=== PATIENT | female | born 1950 | race Caucasian/White ===

== ENCOUNTER 2020-10-18 19:16 | Inpatient (IN) | payer MEDICARE, MEDICAID, SELFPAY ==
--- NOTE | ~2020-10-18 | CT_ITS ---
EXAMINATION: CT HEAD WITHOUT CONTRAST CLINICAL INFORMATION: Change in mental status. Rule out stroke/bleed. COMPARISON: None. TECHNIQUE: Contiguous axial imaging was performed from the skull base to vertex without intravenous contrast. This CT examination was performed using dose optimization techniques as appropriate, variously including the following: * Automated exposure control * Adjustment of mA and/or kV according to patient size (this includes techniques or standardized protocols for targeted exams where dose is matched to indication/reason for exam; i.e. extremities or head) Use of iterative reconstruction technique DLP: 767 mGy-cm. FINDINGS: There is no evidence of acute intracranial hemorrhage or territorial infarction. No abnormal mass effect or midline shift is seen. Townsend to white matter differentiation is well preserved. No extra-axial fluid collections are identified. No hydrocephalus. Proportional prominence of the ventricles and sulcal spaces is consistent with mild volume loss. Patchy periventricular and deep white matter hypoattenuation is consistent with mild small vessel ischemic changes. The osseous structures and soft tissues are normal. The mastoid air cells and visualized portions of the paranasal sinuses are well aerated. CT/CT head/brain wo con IMPRESSION: No acute intracranial pathology. Chronic volume loss with small vessel ischemic change.
--- NOTE | ~2020-10-18 | CT_ITS ---
EXAMINATION: CT HEAD WITHOUT CONTRAST CLINICAL INFORMATION: New onset hearing loss. COMPARISON: Earlier same day TECHNIQUE: Contiguous axial imaging was performed from the skull base to vertex without intravenous administration of contrast. This CT examination was performed using dose optimization techniques as appropriate, variously including the following: *Automated exposure control *Adjustment of mA and/or kV according to patient size (this includes techniques or standardized protocols for targeted exams where dose is matched to indication/reason for exam; i.e. extremities or head) *Use of iterative reconstruction technique DLP: 709 mGy-cm FINDINGS: There is no evidence of acute intracranial hemorrhage or territorial infarction. No abnormal mass effect or midline shift is seen. Townsend to white matter differentiation is well preserved. No extra-axial fluid collections are identified. The ventricles are normal in size. Patchy and confluent subcortical and periventricular white matter low attenuation changes lead to small vessel ischemic disease. Cavernous carotid calcifications. The osseous structures and soft tissues are normal. The mastoid air cells and visualized portions of the paranasal sinuses are well aerated. CT/CT head/brain wo con IMPRESSION: No acute intracranial pathology. Extensive chronic white matter small vessel ischemic changes.
--- NOTE | ~2020-10-18 | XR_ITS ---
EXAMINATION: XR CHEST CLINICAL INFORMATION: Hypoxia COMPARISON: None TECHNIQUE: Frontal view of the chest was obtained. FINDINGS: Cardiac leads overlie the chest. The lungs are well expanded. Prominent interstitial markings are noted. No pleural effusion or pneumothorax. No dense consolidation. The cardiomediastinal silhouette is normal in size with a calcified aorta. XR/XR chest 1V IMPRESSION: Prominent interstitial markings could be associated with mild edema versus a small airways process. No dense consolidation.
--- NOTE | 2020-10-18 19:31 | ECG_ITS ---
Test Reason : SOB Blood Pressure : / mmHG Vent. Rate : 092 BPM Atrial Rate : 092 BPM P-R Int : 148 ms QRS Dur : 076 ms QT Int : 398 ms P-R-T Axes : 038 004 -67 degrees QTc Int : 492 ms Normal sinus rhythm Nonspecific ST and T wave abnormality Prolonged QT Abnormal ECG No previous ECGs available Referred By: Generic ED Physician Electronically Signed By:CHI HASSAN
[2020-10-18 19:35] VITALS: BP 80/58; PULSE 92; RESP 24; TEMP 36.9; O2SAT 93; BMI 35.4
[2020-10-18 19:44] LABS: MANUAL DIFF FLAG NO
[2020-10-18 19:53] LABS: Basophils Percent Auto 0.1 % (0-2); Eosinophils Percent Auto 0.1 % (0-4); Hematocrit 37.9 % (37-47); Hemoglobin 12.4 g/dl (12.0-16.0); Imm Gran Abs Auto 0.25 X10*3/uL (0.00-0.03); Imm Gran Pct Auto 1.8 % (0.0-0.4); Lymphocytes Absolute Auto 0.9 X10*3/uL (1.2-4.9); Lymphocytes Percent Auto 6.4 % (20-40); Mean Corpuscular HGB Conc 32.7 g/dl (31.0-35.0); Mean Corpuscular Hemoglobin 30.2 pg (27.0-33.0); Mean Corpuscular Volume 92.2 fL (80-98); Mean Platelet Volume 9.8 fL (9.4-12.3); Monocytes Absolute Auto 0.7 X10*3/uL (0.1-1.2); Monocytes Percent Auto 5.1 % (2-11); NRBC Pct Auto 0.4 /100WBC (0.0-0.2); Neutrophils Absolute Auto 12.1 X10*3/uL (2.0-8.3); Neutrophils Percent Auto 86.5 % (45-73); Platelet Count 234 X10*3/uL (160-400); Red Blood Count 4.11 X10*6/uL (4.20-5.50); Red Cell Distribution Width 16.3 % (11.0-16.0)
--- NOTE | 2020-10-18 19:58 | ED_ITS ---
HPI - General Adult General Chief complaint: Dyspnea Stated complaint: hypoxia copd Time Seen by Provider: 10/18/20 19:43 Source: EMS and other (ED nurse) Mode of arrival: EMS Limitations: other (Patient is very hard of hearing and cannot get information from her) History of Present Illness HPI narrative: 70-year-old female who is brought into emergency department by ambulance for evaluation of altered mental status. The patient is very hard of hearing and I cannot obtain any information from her. According to the ED nurse, the patient lives at [facility]. The patient has a history of COPD with hypoxia and respiratory failure. The patient wears continuous oxygen at 5 L per nasal cannula. The staff at the [facility] last saw her around 3:00 p.m. and she was wearing her oxygen. When they checked in on her she was confused and obtunded. When the paramedics arrived they found that the patient's O2 saturation machine was off and she was not wearing her nasal cannula. The paramedics placed her on oxygen and the patient became more awake and alert and by the time she arrived in the emergency department she was no longer up tended. Paramedics did note the patient has peripheral edema. Related Data Home Medications Medication Instructions Recorded Confirmed aspirin 81 mg chewable tablet 1 tab PO DAILY 10/19/20 10/19/20 azithromycin 250 mg tablet 1 tab PO 3XW 10/19/20 10/19/20 cholecalciferol (vitamin D3) 50 1 cap PO DAILY 10/19/20 10/19/20 mcg (2,000 unit) capsule (Vitamin D3) fluoxetine 20 mg capsule 1 cap PO DAILY 10/19/20 10/19/20 furosemide 40 mg tablet 1 tab PO DAILY 10/19/20 10/19/20 levothyroxine 75 mcg tablet 1 tab PO DAILY 10/19/20 10/19/20 lisinopril 2.5 mg tablet 1 tab PO DAILY 10/19/20 10/19/20 loratadine 10 mg tablet 1 tab PO DAILY 10/19/20 10/19/20 lorazepam 0.5 mg tablet 1 tab PO TID PRN 10/19/20 10/19/20 melatonin 3 mg tablet 1 tab PO BEDTIME 10/19/20 10/19/20 montelukast 10 mg tablet 1 tab PO DAILY 10/19/20 10/19/20 multivitamin with minerals-ferrous 1 tab PO BEDTIME 10/19/20 10/19/20 sulfate 4.5 mg iron tablet (One Daily Multivitamins with Minerals) prednisone 10 mg tablet 1 tab PO DAILY 10/19/20 10/19/20 pregabalin 75 mg capsule 1 cap PO BID 10/19/20 10/19/20 rosuvastatin 20 mg tablet 1 tab PO BEDTIME 10/19/20 10/19/20 trazodone 100 mg tablet 1 tab PO BEDTIME 10/19/20 10/19/20 Allergies Allergy/AdvReac Type Severity Reaction Status Date / Time Seasonal IC Allergy Unknown Uncoded 02/16/19 00:00 seasonal IC Allergy Unknown Uncoded 12/19/18 00:00 [facility] Past Medical History [facility] Narrative: Past medical history: COPD with hypoxia and respiratory failure in the past. Hypothyroidism, depression, atrial fibrillation. Social history: The patient lives at the [facility]. She does not smoke ci garettes, drink alcohol or use drugs. Social History Social History Advance Directives: No Physical Exam Vital Signs: Vital Signs: Last Vital Signs Temp 98.7 F 10/18/20 21:05 Pulse 81 10/19/20 01:05 Resp 13 10/19/20 01:05 BP 119/72 10/19/20 01:05 Pulse Ox 96 10/19/20 01:05 Oxygen Flow Rate 5 10/18/20 19:35 Body Mass Index 35.4 Course Course Course Narrative: 70-year-old female with history of COPD who is oxygen dependent and receives 5 L of oxygen via nasal cannula presented to emergency department for evaluation of altered mental status secondary to being off oxygen. According to paramedics she was initially attended and when they put her back on oxygen she return to her baseline by the time they arrived in the emergency department emergency department. The patient is very hard of hearing and it is not possible to get information from her but she has no complaints and did not appear to be in any distress. The patient's laboratory evaluation [place] [address]. The patient's BUN was 19 with a creatinine of 1.85. Lactic acid was elevated at 3.3. Chest x-ray is concerning for bilateral interstitial infiltrates. The patient's 1st troponin was 1706. Twelve EKG did not reveal any evidence for ischemia or myocardial injury. The patient does have an elevation in her AST and ALT. At this time, concerned that the patient may have pneumonia. Also concerned the patient may have had ischemic myocardial injury secondary to hypoxia. I did discuss the elevated troponin and the unremarkable EKG with the covering cleat thrower, Dr. Jimenez. He recommended that the patient be treated with heparin and aspirin and the patient be admitted for further evaluation and management. I will also treat the patient with normal saline IV 30 milligrams/kilogram based on her ideal body weight since her BMI is 35.4. The patient will be treated with ceftriaxone 1 g IV and azithromycin 500 mg IV for possible pneumonia. 2231: I did discuss the patient's presentation with the covering hospitalist, Dr. Arreola and the patient will be admitted to the intermediate care unit for further management. Medical Decision Making Lab Data Result diagrams: 10/18/20 19:37 10/18/20 19:37 Labs: Lab Results 10/18/20 10/18/20 10/18/20 Range/Units 19:37 19:37 19:37 WBC 14.0 H (4.8-10.8) X10*3/uL RBC 4.11 L (4.20-5.50) X10*6/uL Hgb 12.4 (12.0-16.0) g/dl Hct 37.9 (37-47) % MCV 92.2 (80-98) fL MCH 30.2 (27.0-33.0) pg MCHC 32.7 (31.0-35.0) g/dl RDW 16.3 H (11.0-16.0) % Plt Count 234 (160-400) X10*3/uL MPV 9.8 (9.4-12.3) fL Immature Gran % (Auto) 1.8 H (0.0-0.4) % Neut % (Auto) 86.5 H (45-73) % Lymph % (Auto) 6.4 L (20-40) % Franklin % (Auto) 5.1 (2-11) % Eos % (Auto) 0.1 (0-4) % Baso % (Auto) 0.1 (0-2) % Lymph # (Auto) 0.9 L (1.2-4.9) X10*3/uL Franklin # (Auto) 0.7 (0.1-1.2) X10*3/uL Eos # (Auto) 0.0 (0.0-0.4) X10*3/uL Baso # (Auto) 0.0 (0.0-0.2) X10*3/uL Abs Immat Gran (auto) 0.25 H (0.00-0.03) X10*3/uL Absolute Neuts (auto) 12.1 H (2.0-8.3) X10*3/uL Absolute Nucleated RBC 0.050 H (0.0-0.012) X10*3/uL Nucleated RBC % (auto) 0.4 H (0.0-0.2) /100WBC PT (9.9-13.0) SEC INR (0.9-1.1) APTT (24.1-38.0) SEC O2 Saturation % ABG pH at Pt Temp (7.35-7.45) ABG pH (Temp Correct) (7.35-7.45) ABG pCO2 at Pt Temp (32-45) mmHg ABG pCO2 (Temp Corrct (32-45) mmHg ABG pO2 at Pt Temp (83-108) mmHg ABG pO2 (Temp Correct (83-108) ABG HCO3 (22-26) mmol/L ABG Base Excess (Actual) mmol/L Sodium 139 (135-145) mmol/L Potassium 3.5 (3.3-5.1) mmol/L Chloride 96 (96-108) mmol/L Carbon Dioxide 30 H (22-29) mmol/L Anion Gap 17 (12-20) BUN 19 H (9-16) mg/dL Creatinine 1.85 H (0.5-1.4) mg/dL Estim Creat Clear Calc 27.2 Estimated GFR 27 Random Glucose 170 H (60-115) mg/dL Lactic Acid (0.5-2.0) mmol/L Lactic Acid Fup @ 2Hr (0.5-2.0) mmol/L Calcium 9.3 (8.4-10.2) mg/dL Total Bilirubin 0.9 (0.0-1.0) mg/dL Direct Bilirubin 0.4 (0.0-0.5) mg/dL AST 295 H (5-31) U/L ALT 340 H (0-31) U/L Alkaline Phosphatase 41 (39-117) U/L Troponin I High Sens 1706.8 H* (<3.5-17.0) ng/L B-Natriuretic Peptide 232 H (<100) pg/mL Total Protein 5.9 L (6.5-8.0) g/dL Albumin 3.7 (3.5-5.0) g/dL COVID-19 ([facility]) (Negative) COVID-19 Clin Com 10/18/20 10/18/20 10/18/20 Range/Units 20:20 20:20 21:10 WBC (4.8-10.8) X10*3/uL RBC (4.20-5.50) X10*6/uL Hgb (12.0-16.0) g/dl Hct (37-47) % MCV (80-98) fL MCH (27.0-33.0) pg MCHC (31.0-35.0) g/dl RDW (11.0-16.0) % Plt Count (160-400) X10*3/uL MPV (9.4-12.3) fL Immature Gran % (Auto) (0.0-0.4) % Neut % (Auto) (45-73) % Lymph % (Auto) (20-40) % Franklin % (Auto) (2-11) % Eos % (Auto) (0-4) % Baso % (Auto) (0-2) % Lymph # (Auto) (1.2-4.9) X10*3/uL Franklin # (Auto) (0.1-1.2) X10*3/uL Eos # (Auto) (0.0-0.4) X10*3/uL Baso # (Auto) (0.0-0.2) X10*3/uL Abs Immat Gran (auto) (0.00-0.03) X10*3/uL Absolute Neuts (auto) (2.0-8.3) X10*3/uL Absolute Nucleated RBC (0.0-0.012) X10*3/uL Nucleated RBC % (auto) (0.0-0.2) /100WBC PT (9.9-13.0) SEC INR (0.9-1.1) APTT (24.1-38.0) SEC O2 Saturation 92.0 % ABG pH at Pt Temp 7.51 H (7.35-7.45) ABG pH (Temp Correct) 7.50 H (7.35-7.45) ABG pCO2 at Pt Temp 37 (32-45) mmHg ABG pCO2 (Temp Corrct 38 (32-45) mmHg ABG pO2 at Pt Temp 74 L (83-108) mmHg ABG pO2 (Temp Correct 74 L (83-108) ABG HCO3 30 H (22-26) mmol/L ABG Base Excess (Actual) 7.0 mmol/L Sodium (135-145) mmol/L Potassium (3.3-5.1) mmol/L Chloride (96-108) mmol/L Carbon Dioxide (22-29) mmol/L Anion Gap (12-20) BUN (9-16) mg/dL Creatinine (0.5-1.4) mg/dL Estim Creat Clear Calc Estimated GFR Random Glucose (60-115) mg/dL Lactic Acid 3.3 H* (0.5-2.0) mmol/L Lactic Acid Fup @ 2Hr (0.5-2.0) mmol/L Calcium (8.4-10.2) mg/dL Total Bilirubin (0.0-1.0) mg/dL Direct Bilirubin (0.0-0.5) mg/dL AST (5-31) U/L ALT (0-31) U/L Alkaline Phosphatase (39-117) U/L Troponin I High Sens (<3.5-17.0) ng/L B-Natriuretic Peptide (<100) pg/mL Total Protein (6.5-8.0) g/dL Albumin (3.5-5.0) g/dL COVID-19 ([facility]) Negative (Negative) COVID-19 Clin Com See Note 10/18/20 10/18/20 10/18/20 Range/Units 22:01 22:41 22:41 WBC (4.8-10.8) X10*3/uL RBC (4.20-5.50) X10*6/uL Hgb (12.0-16.0) g/dl Hct (37-47) % MCV (80-98) fL MCH (27.0-33.0) pg MCHC (31.0-35.0) g/dl RDW (11.0-16.0) % Plt Count (160-400) X10*3/uL MPV (9.4-12.3) fL Immature Gran % (Auto) (0.0-0.4) % Neut % (Auto) (45-73) % Lymph % (Auto) (20-40) % Franklin % (Auto) (2-11) % Eos % (Auto) (0-4) % Baso % (Auto) (0-2) % Lymph # (Auto) (1.2-4.9) X10*3/uL Franklin # (Auto) (0.1-1.2) X10*3/uL Eos # (Auto) (0.0-0.4) X10*3/uL Baso # (Auto) (0.0-0.2) X10*3/uL Abs Immat Gran (auto) (0.00-0.03) X10*3/uL Absolute Neuts (auto) (2.0-8.3) X10*3/uL Absolute Nucleated RBC (0.0-0.012) X10*3/uL Nucleated RBC % (auto) (0.0-0.2) /100WBC PT 12.6 (9.9-13.0) SEC INR 1.1 (0.9-1.1) APTT 31.2 (24.1-38.0) SEC O2 Saturation % ABG pH at Pt Temp (7.35-7.45) ABG pH (Temp Correct) (7.35-7.45) ABG pCO2 at Pt Temp (32-45) mmHg ABG pCO2 (Temp Corrct (32-45) mmHg ABG pO2 at Pt Temp (83-108) mmHg ABG pO2 (Temp Correct (83-108) ABG HCO3 (22-26) mmol/L ABG Base Excess (Actual) mmol/L Sodium (135-145) mmol/L Potassium (3.3-5.1) mmol/L Chloride (96-108) mmol/L Carbon Dioxide (22-29) mmol/L Anion Gap (12-20) BUN (9-16) mg/dL Creatinine (0.5-1.4) mg/dL Estim Creat Clear Calc Estimated GFR Random Glucose (60-115) mg/dL Lactic Acid (0.5-2.0) mmol/L Lactic Acid Fup @ 2Hr 2.2 H* (0.5-2.0) mmol/L Calcium (8.4-10.2) mg/dL Total Bilirubin (0.0-1.0) mg/dL Direct Bilirubin (0.0-0.5) mg/dL AST (5-31) U/L ALT (0-31) U/L Alkaline Phosphatase (39-117) U/L Troponin I High Sens 6805.2 H* D (<3.5-17.0) ng/L B-Natriuretic Peptide (<100) pg/mL Total Protein (6.5-8.0) g/dL Albumin (3.5-5.0) g/dL COVID-19 ([facility]) (Negative) COVID-19 Clin Com ECG Data Attestation: I personally reviewed and interpreted this ECG as follows: Interpretation: 1943: Normal sinus rhythm rate of 92, normal OR interval and QRS duration prolonged QTC of 492 milliseconds, no ST segment elevation, no ST s egment depression, no PACs, no PVCs, nonspecific flattening of the T-waves, no old EKG for comparison. Critical Care Time Critical Care Time Critical Care Time: Yes Total Critical Care Time: 50 Attestation: Critical Care: The patient was critically ill with a high probability of imminent or life threatening deterioration. I spent greater than 30 minutes of discontinuous time evaluating the patient,delivering critical care at the bedside, discussing and evaluating pertinent data with consultants. Critical care time does not include time spent performing separately billable procedures or teaching. Total time spent performing critical care was 50 minutes. Discharge Plan Discharge Clinical Impression: Hypoxia Pneumonia Qualifiers: Pneumonia type: due to unspecified organism Laterality: bilateral Lung location: unspecified part of lung Qualified Code(s): J18.9 - Pneumonia, unspecified organism Myocardial injury Qualifiers: Encounter type: initial encounter Qualified Code(s): S26.90XA - Unspecified injury of heart, unspecified with or without hemopericardium, initial encounter Patient Disposition: Admitted As Inpatient
[2020-10-18 19:59] LABS: Anion Gap 17 (12-20); Blood Urea Nitrogen 19 mg/dL (9-16); Calcium 9.3 mg/dL (8.4-10.2); Carbon Dioxide 30 mmol/L (22-29); Chloride 96 mmol/L (96-108); Creatinine Clr Calc Pharmacy 27.2; Estimated Glomerular Filt Rate 27; Glucose Random 170 mg/dL (60-115); Potassium 3.5 mmol/L (3.3-5.1); Sodium 139 mmol/L (135-145)
[2020-10-18 20:17] LABS: B Type Natriuretic Peptide 232 pg/mL (<100); Troponin-I High Sensitivity 1706.8 ng/L (<3.5-17.0)
[2020-10-18 20:40] LABS: Alanine Aminotransferase 340 U/L (0-31); Albumin Level 3.7 g/dL (3.5-5.0); Alkaline Phosphatase 41 U/L (39-117); Aspartate Amino Transferase 295 U/L (5-31); Bilirubin Direct 0.4 mg/dL (0.0-0.5); Bilirubin Total 0.9 mg/dL (0.0-1.0); Total Protein 5.9 g/dL (6.5-8.0)
[2020-10-18 20:40] LABS: Lactic Acid 3.3 mmol/L (0.5-2.0)
[2020-10-18 20:45] LABS: COVID-19 Test Negative (Negative)
[2020-10-18 21:05] VITALS: BP 101/70; PULSE 87; RESP 24; TEMP 37.1; O2SAT 93; O2SAT 94
[2020-10-18 21:14] LABS: ABG HCO3 30 mmol/L (22-26); ABG pCO2 37 mmHg (32-45); ABG pCO2 TC 38 mmHg (32-45); ABG pH 7.51 (7.35-7.45); ABG pO2 74 mmHg (83-108); ABG pO2 TC 74 (83-108)
[2020-10-18 21:14] LABS: ABG Refer to POC result
[2020-10-18] MEDS: 0.9 % Sodium Chloride 1,434 ML 1434 ML IVCONT (22:04)
[2020-10-18 22:11] LABS: INTERNATIONAL NORM RATIO 1.1 (0.9-1.1); Prothrombin Time 12.6 SEC (9.9-13.0)
[2020-10-18] MEDS: cefTRIAXone sodium 1 GM in 0.9 % Sodium Chloride 50 ML IV (22:11)
[2020-10-18] MEDS: Aspirin 81 MG TAB.CHEW 162 MG PO (22:11)
[2020-10-18 22:14] LABS: Partial Thromboplastin Time 31.2 SEC (24.1-38.0)
[2020-10-18 22:24] LABS: Reflex Lactate? Lactic Acid Added
[2020-10-18] MEDS: Heparin Sodium,Porcine 5,000 UNIT/ML VIAL 4000 UNIT IVPUSH (22:45)
[2020-10-18 23:12] LABS: ~Lactic Acid-LAB USE ONLY 2.2 mmol/L (0.5-2.0)
--- NOTE | 2020-10-18 23:22 | PM.IMHP ---
History of Present Illness Date of Service: 10/18/20 Chief Complaint: found obtunded/hypoxic 70-year-old female with past medical history of CHF, COPD O2 dependent about 4-5 L, hypothyroidism, hypertension, anxiety and depression, presents to the hospital after being unresponsive at home with her oxygen nasal cannula note in her nose as well as the oxygen tank off. It appears add EMS found patient to be hypoxic although unclear how low O2 levels. Patient was very confused, obtunded, patient was placed on O2 and appear to have recovered on her way to the hospital. Patient at this time is alert oriented x3, but according to the patient and her son over the phone patient has not developed hearing loss which is new to her and has really significant difficulty with hearing. Communication is mostly through writing, patient reports that she has developed lower extremity edema for the past 4 days, she also is complaining of shortness of breath, no orthopnea or PND, chest pain, no abdominal pain nausea or vomiting, no diarrhea constipation, no urinary symptoms. All other review of system negative On arrival to the ED patient hemodynamically stable with no significant abnormal vitals except for a blood pressure of 80/58. her baseline oxygen of 5 L. patient received 1.4 L of NS fluid with blood pressure improving. Patient's labs are significant for WBC count of 14, pH of 7.51, BUN of 19, creatinine of 1.85 with no previous for comparison, lactic acid of 3.3, AST of 295, ALT of 340, troponin of 1700 increased to 6000, BNP of 232, UA positive for UTI with leukocyte Estrace and WBC Interstitial marking associated with edema versus small airway process Head CT negative Review of Systems Review of Systems: Yes all other systems are reviewed and are negative [facility] Medical History (Updated 10/19/20 @ 06:46 by Cony Arreola MD) CHF (congestive heart failure) COPD (chronic obstructive pulmonary disease) Hyperlipidemia Hypertension Hypothyroidism Pertinent family history: Family history is negative for CHF Social History (Updated 10/19/20 @ 06:41 by Cony Arreola MD) Alcohol intake: never Patient Tobacco Use Status: Former Tobacco user Use of substances other than those prescribed or required for medical reasons: No Advance Directives: No Meds Allergies Allergy/AdvReac Type Severity Reaction Status Date / Time Seasonal IC Allergy Unknown Uncoded 02/16/19 00:00 seasonal IC Allergy Unknown Uncoded 12/19/18 00:00 Active Medications: Current Medications Generic Name Dose Route Start Last Admin Trade Name Beatrice PRN Reason Stop Dose Admin Acetaminophen 650 mg 10/18/20 23:21 Acetaminophen 325 Mg Tablet PO Q6H PRN Pain, Mild (Pain Scale 1-3) Docusate Sodium 100 mg 10/18/20 23:21 Docusate Sodium 100 Mg Capsule PO DAILY PRN Constipation Furosemide 40 mg 10/19/20 09:00 Furosemide 40 Mg/4 Ml Vial IVPUSH BID@0900,1800 [facility] Protocol Azithromycin 500 mg/ Sodium 250 mls @ 125 mls/hr 10/18/20 21:37 Chloride IV 10/18/20 23:36 ONCE STA Ondansetron HCl 4 mg 10/18/20 23:21 Ondansetron Hcl 4 Mg/2 Ml Vial IVPUSH Q8H PRN Nausea and Vomiting Sodium Chloride 3 ml 10/19/20 00:00 0.9 % Sodium Chloride Flush 3 Ml Syringe IVFLUSH QSHIFT [facility] Home Medications Medication Instructions Recorded Confirmed Last Taken Type albuterol sulfate 0.083 mg INHALATION 4-6XD 10/19/20 10/19/20 Unknown History albuterol sulfate 90 mcg/actuation 90 mcg INHALATION 4-6XD 10/19/20 10/19/20 Unknown History aerosol inhaler aspirin 81 mg chewable tablet 1 tab PO DAILY 10/19/20 10/19/20 Unknown History azithromycin 250 mg tablet 1 tab PO 3XW 10/19/20 10/19/20 Unknown History cholecalciferol (vitamin D3) 50 1 cap PO DAILY 10/19/20 10/19/20 Unknown History mcg (2,000 unit) capsule (Vitamin D3) fluoxetine 20 mg capsule 1 cap PO DAILY 10/19/20 10/19/20 Unknown History furosemide 40 mg tablet 1 tab PO DAILY 10/19/20 10/19/20 Unknown History levothyroxine 75 mcg tablet 1 tab PO DAILY 10/19/20 10/19/20 Unknown History lisinopril 2.5 mg tablet 1 tab PO DAILY 10/19/20 10/19/20 Unknown History loratadine 10 mg tablet 1 tab PO DAILY 10/19/20 10/19/20 Unknown History lorazepam 0.5 mg tablet 1 tab PO TID PRN 10/19/20 10/19/20 Unknown History melatonin 3 mg tablet 1 tab PO BEDTIME 10/19/20 10/19/20 Unknown History mometasone-formoterol HFA 100 2 puff INHALATION BID 10/19/20 10/19/20 Unknown History mcg-5 mcg/actuation aerosol inhaler (Dulera) montelukast 10 mg tablet 1 tab PO DAILY 10/19/20 10/19/20 Unknown History multivitamin with minerals-ferrous 1 tab PO BEDTIME 10/19/20 10/19/20 Unknown History sulfate 4.5 mg iron tablet (One Daily Multivitamins with Minerals) prednisone 10 mg tablet 1 tab PO DAILY 10/19/20 10/19/20 Unknown History pregabalin 75 mg capsule 1 cap PO BID 10/19/20 10/19/20 Unknown History rosuvastatin 20 mg tablet 1 tab PO BEDTIME 10/19/20 10/19/20 Unknown History trazodone 100 mg tablet 1 tab PO BEDTIME 10/19/20 10/19/20 Unknown History Physical Exam Vital Signs and Narrative: Vital Signs: Last Vital Signs Temp 98.7 F 10/18/20 21:05 Pulse 87 10/18/20 21:05 Resp 24 H 10/18/20 21:05 BP 101/70 10/18/20 21:05 Pulse Ox 94 10/18/20 21:05 Oxygen Flow Rate 5 10/18/20 19:35 Body Mass Index 35.4 Results Labs CBC and Chem 7: 10/18/20 19:37 10/18/20 19:37 Labs: Laboratory Results - last 24 hr 10/18/20 10/18/20 10/18/20 19:37 19:37 19:37 MCV 92.2 MCH 30.2 MCHC 32.7 RDW 16.3 H Plt Count 234 MPV 9.8 Immature Gran % (Auto) 1.8 H Neut % (Auto) 86.5 H Lymph % (Auto) 6.4 L Graves % (Auto) 5.1 Eos % (Auto) 0.1 Baso % (Auto) 0.1 Lymph # (Auto) 0.9 L Graves # (Auto) 0.7 Eos # (Auto) 0.0 Baso # (Auto) 0.0 Abs Immat Gran (auto) 0.25 H Absolute Neuts (auto) 12.1 H Absolute Nucleated RBC 0.050 H Nucleated RBC % (auto) 0.4 H PT INR APTT O2 Saturation ABG pH at Pt Temp ABG pH (Temp Correct) ABG pCO2 at Pt Temp ABG pCO2 (Temp Corrct ABG pO2 at Pt Temp ABG pO2 (Temp Correct ABG HCO3 ABG Base Excess (Actual) Anion Gap 17 Estim Creat Clear Calc 27.2 Estimated GFR 27 Random Glucose 170 H Lactic Acid Lactic Acid Fup @ 2Hr Calcium 9.3 Total Bilirubin 0.9 Direct Bilirubin 0.4 AST 295 H ALT 340 H Alkaline Phosphatase 41 Troponin I High Sens 1706.8 H* B-Natriuretic Peptide 232 H Total Protein 5.9 L Albumin 3.7 COVID-19 ([facility]) COVID-19 [facility] Com 10/18/20 10/18/20 10/18/20 20:20 20:20 21:10 MCV MCH MCHC RDW Plt Count MPV Immature Gran % (Auto) Neut % (Auto) Lymph % (Auto) Graves % (Auto) Eos % (Auto) Baso % (Auto) Lymph # (Auto) Graves # (Auto) Eos # (Auto) Baso # (Auto) Abs Immat Gran (auto) Absolute Neuts (auto) Absolute Nucleated RBC Nucleated RBC % (auto) PT INR APTT O2 Saturation 92.0 ABG pH at Pt Temp 7.51 H ABG pH (Temp Correct) 7.50 H ABG pCO2 at Pt Temp 37 ABG pCO2 (Temp Corrct 38 ABG pO2 at Pt Temp 74 L ABG pO2 (Temp Correct 74 L ABG HCO3 30 H ABG Base Excess (Actual) 7.0 Anion Gap Estim Creat Clear Calc Estimated GFR Random Glucose Lactic Acid 3.3 H* Lactic Acid Fup @ 2Hr Calcium Total Bilirubin Direct Bilirubin AST ALT Alkaline Phosphatase Troponin I High Sens B-Natriuretic Peptide Total Protein Albumin COVID-19 ([facility]) Negative COVID-19 [facility] Com See Note 10/18/20 10/18/20 22:01 22:41 MCV MCH MCHC RDW Plt Count MPV Immature Gran % (Auto) Neut % (Auto) Lymph % (Auto) Graves % (Auto) Eos % (Auto) Baso % (Auto) Lymph # (Auto) Graves # (Auto) Eos # (Auto) Baso # (Auto) Abs Immat Gran (auto) Absolute Neuts (auto) Absolute Nucleated RBC Nucleated RBC % (auto) PT 12.6 INR 1.1 APTT 31.2 O2 Saturation ABG pH at Pt Temp ABG pH (Temp Correct) ABG pCO2 at Pt Temp ABG pCO2 (Temp Corrct ABG pO2 at Pt Temp ABG pO2 (Temp Correct ABG HCO3 ABG Base Excess (Actual) Anion Gap Estim Creat Clear Calc Estimated GFR Random Glucose Lactic Acid Lactic Acid Fup @ 2Hr 2.2 H* Calcium Total Bilirubin Direct Bilirubin AST ALT Alkaline Phosphatase Troponin I High Sens B-Natriuretic Peptide Total Protein Albumin COVID-19 ([facility]) COVID-19 Clin Com Imaging Radiologist's Impressions: Impressions Chest X-Ray 10/18/20 19:31 IMPRESSION: Prominent interstitial markings could be associated with mild edema versus a small airways process. No dense consolidation. Head CT 10/18/20 19:49 IMPRESSION: No acute intracranial pathology. Chronic volume loss with small vessel ischemic change. Assessment and Plan (1) Acute and chronic respiratory failure with hypoxia: Status: Acute (2) NSTEMI (non-ST elevated myocardial infarction): Status: Acute (3) CHF exacerbation: Status: Acute (4) UTI (urinary tract infection): Status: Acute (5) ELICIA (acute kidney injury): Status: Acute (6) Lactic acidosis: Status: Acute 70-year-old female with past medical history COPD and CHF O2 dependent on 4-5 L at baseline found to be obtunded at assisted living after having her O2 off # acute on chronic hypoxic respiratory failure - found obtunded as a result - most likely after losing her nasal cannula while sleeping - patient does not remember much but remember waking up in the ambulance - she is alert and oriented x3 but has now developed some acute form of hearing loss according to the patient - head CT negative - continue home oxygen - tree CHF as below # acute CHF exacerbation - reports orthopnea, lower extremity edema, has elevated BNP, as well as some interstitial markin on chest x-ray - patient on p.o. Lasix at home - will start on IV Lasix 40 b.i.d. - strict I&O, daily weight, low-sodium diet - echocardiogram - consult cardiology # NSTEMI - most likely type 2 in the setting of hypoxia - patient started on heparin GGT after discussion with Cardiology - will order echocardiogram - trend troponin # ELICIA - possibly secondary to hypoxic injury as well as CHF - patient will be started on furosemide - follow BMP # lactic acidosis - secondary to above reasons including hypoxia - cannot be given fluids as patient is CHF exacerbation - will monitor # UTI - has positive UA - will start on ceftriaxone - follow cultures # history of COPD - does not appear to have any exacerbation, denies any increased cough or sputum production - continue home inhalers - continue home dose of prednisone # diabetic - will hold oral antihyperglycemics - start low-dose sliding scale insulin - diabetic diet # hypothyroidism - continue levothyroxine DVT prophylaxis:hepairn [facility] Quality Stroke Does the patient have a stroke diagnosis?: No VTE Prior VTE?: No VTE Risk Level:: Medical - moderate - high VTE Device Contraindication: Treatment Not Indicated VTE Drug Contraindication: N/A - Med Ordered
--- NOTE | 2020-10-18 23:30 | PC.NURSE ---
This RN assuming care of pt at this time. This RN notes no medrec has been completed. This RN will attempt to complete, provider aware. In report, Jairo RN reports he believed pt was to receive heparin drip but there was no order in the computer for pt for said drip. This RN asks Jairo if he knows why, he says he believes it must've been a communication error. This RN calls Dr Arreola who informs this RN to notify Dr Berry that order needs to be placed. This RN notified Dr Berry who is attempting to place order at this time.
--- NOTE | 2020-10-18 23:34 | PC.NURSE ---
In addition to previous note, this RN to medicate with overdue abx which were ordered on previous RN shift
[2020-10-19] VITALS (14 sets, daily range): BP systolic 117–151; BP diastolic 60–89; PULSE 68–89; RESP 13–22; TEMP 36.4–36.6; O2SAT 6–96
[2020-10-19] MEDS: Azithromycin 500 MG in 0.9 % Sodium Chloride 250 ML 125 MG IV (00:02)
[2020-10-19] MEDS: Furosemide 40 MG/4 ML VIAL IVPUSH ×2 (00:16→08:20)
[2020-10-19] MEDS: Heparin Sodium,Porcine/1/2NS 25,000 UNIT/250 ML IV.SOLN 10 UNIT IVCONT (00:25)
[2020-10-19 00:48] LABS: Reflex Lactate? 2 Y
[2020-10-19 00:48] LABS: Appearance Urine HAZY; Color Urine YELLOW; Glucose Urine UA NEG (NEG); Leukocyte Esterase Urine 2+ (NEG); Nitrite Urine NEG (NEG); PH 5.5 (5.0-8.0); Specific Gravity - Urine 1.025 (1.005-1.025); UACC Culture Trigger YES; Urine Blood TRACE (NEG); Urine Ketones 5 MG/DL (NEG); Urine Protein 2+ MG/DL (NEG-TRACE)
[2020-10-19 00:58] LABS: Bacteria Urine 1+ /LPF; Granular Casts Urine 0-2 /LPF; Hyaline Casts Urine 0-2 /LPF; Squamous Epithelial Cell Urine TRACE /LPF
[2020-10-19 01:30] LABS: ~Lactic Acid-LAB USE ONLY 2.3 mmol/L (0.5-2.0)
--- NOTE | 2020-10-19 04:25 | PC.NURSE ---
This RN notes on monitor by nurses' station that pt has O2 sat in low 80s. This RN to bedside. Pt asleep, low in bed with poor posture r/t maintaining open airway. Pt awoken, repositioned. Pt O2 sat increase to 86-88%. Pt stand and pivot to bedside commode, desat to 79%. Pt audibly wheezing. Pt transferred back to bed via stand and pivot and this RN placed nasal cannula in pt's mouth and increased O2 flow to 15lpm. Pt's sat increased to 94% then titrated down to 6lpm and cannula returned to nares. Pt sat then 90-93%. Dr Arreola made aware. this Rn requested neb tx order. order placed. respiratory contacted. respiratory to room to medicate pt at this time
[2020-10-19] MEDS: Albuterol/Iprat 2.5/0.5MG 3 ML AMPUL.NEB INHALE ×3 (04:34→19:33)
[2020-10-19 06:53] LABS: Hematocrit 32.2 % (37-47); Hemoglobin 10.6 g/dl (12.0-16.0); Mean Corpuscular HGB Conc 32.9 g/dl (31.0-35.0); Mean Corpuscular Hemoglobin 30.2 pg (27.0-33.0); Mean Corpuscular Volume 91.7 fL (80-98); Mean Platelet Volume 9.6 fL (9.4-12.3); Platelet Count 188 X10*3/uL (160-400); Red Blood Count 3.51 X10*6/uL (4.20-5.50); Red Cell Distribution Width 16.5 % (11.0-16.0); White Blood Count 9.1 X10*3/uL (4.8-10.8)
[2020-10-19 06:59] LABS: INTERNATIONAL NORM RATIO 1.1 (0.9-1.1); Prothrombin Time 12.9 SEC (9.9-13.0)
[2020-10-19 07:17] LABS: Blood Urea Nitrogen 21 mg/dL (9-16); Creatinine Clr Calc Pharmacy 34.7; Estimated Glomerular Filt Rate 35; Glucose Random 126 mg/dL (60-115)
[2020-10-19 07:28] LABS: Anion Gap 13 (12-20); Calcium 8.2 mg/dL (8.4-10.2); Carbon Dioxide 29 mmol/L (22-29); Chloride 102 mmol/L (96-108); Potassium 2.9 mmol/L (3.3-5.1); Sodium 141 mmol/L (135-145)
--- NOTE | 2020-10-19 07:51 | HO.PM.IMPN ---
Subjective Subjective Date of Service: 10/19/20 Interval History: Being followed for non ST elevation HI and CHF, denies chest pain, no palpitations, shortness of breath has improved feels better since arrival to ER. 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 CVS no chest pain, no palpitation. Respiratory no cough ,+sob. Gastrointestinal no nausea no vomiting, no abdominal pain Review of Systems: Yes all other systems are reviewed and are negative Physical Exam Vital Signs: Vital Signs: Last Vital Signs Temp 98.7 F 10/18/20 21:05 Pulse 69 10/19/20 06:00 Resp 18 10/19/20 06:00 BP 131/74 10/19/20 06:00 Pulse Ox 94 10/19/20 06:00 Oxygen Flow Rate 5 10/18/20 19:35 Body Mass Index 35.4 General no acute distress ,alert, oriented x3. Neck supple no JVD. CVS regular rate rhythm, Respiratory lungs clear to auscultation, diminished breath sounds, no respiratory distress, no wheeze, no rhonchi. Gastrointestinal abdomen soft, nontender, bowel sounds audible, no guarding , no rigidity. Extremities no edema. Neuro nonfocal, moving all 4 extremity, speech clear. Skin no rash Objective Data Active Medications Acetaminophen (Acetaminophen 325 Mg Tablet) 650 mg PO Q6H PRN PRN Reason: Pain, Mild (Pain Scale 1-3) Albuterol Sulfate (Albuterol Sulfate (0.083%) 2.5 Mg/3 Ml Vial.Neb) 0.083 mg INHALE 6XD PRN PRN Reason: Wheezing Albuterol Sulfate (Albuterol Sulfate 90 Mcg 8 Gm Inhaler) 1 puff INHALE Q4H PRN PRN Reason: Wheezing Albuterol/Ipratropium (Albuterol/Iprat 2.5/0.5mg 3 Ml Ampul.Neb) 3 ml INHALE RQ4H WHILE AWAKE SIDRA Last Admin: 10/19/20 07:45 Dose: Not Given Documented by: LELAND Non-Admin Reason: pt refused Albuterol/Ipratropium (Albuterol/Iprat 2.5/0.5mg 3 Ml Ampul.Neb) 3 ml INHALE RQ4H PRN PRN Reason: Shortness of Breath/Wheezing Last Admin: 10/19/20 04:34 Dose: 3 ml Documented by: CLAUDY Aspirin (Aspirin Enteric Coated 81 Mg Tablet.Dr) 81 mg PO DAILY [facility] Aspirin (Aspirin 81 Mg Tab.Chew) 81 mg PO DAILY [facility] Atorvastatin Calcium (Atorvastatin Calcium 80 Mg Tablet) 80 mg PO BEDTIME [facility] Azithromycin (Azithromycin 250 Mg Tablet) 250 mg PO 3XW [facility] Dextrose (Dextrose 50 % 25 Gm/50 Ml Vial) 25 gm IVPUSH Q15M PRN; Protocol PRN Reason: per Hypoglycemia Standing Ord. Docusate Sodium (Docusate Sodium 100 Mg Capsule) 100 mg PO DAILY PRN PRN Reason: Constipation Fluoxetine HCl (Fluoxetine Hcl 20 Mg Capsule) 20 mg PO DAILY [facility] Fluticasone/Vilanterol (Fluticasone/Vilanterol 100/25 Blst.W.Dev) 1 puff INHALE RDAILY [facility] Last Admin: 10/19/20 07:45 Dose: Not Given Documented by: LELAND Non-Admin Reason: Med Not Available Furosemide (Furosemide 40 Mg/4 Ml Vial) 40 mg IVPUSH BID@0900,1800 [facility]; Protocol Last Admin: 10/19/20 00:16 Dose: 40 mg Documented by: PURNIMA Glucose (Glucose Gel 15 Gm Gel..Gram.) 15 gm PO Q15M PRN; Protocol PRN Reason: per Hypoglycemia Standing Ord. Heparin Sodium (Porcine) (Heparin Sodium,Porcine 5,000 Unit/Ml Vial) 3,400 unit 40 unit/kg (3400 unit) IVPUSH PROTOCOL BOLUS PRN; Protocol PRN Reason: 40 unit/kg - Heparin Protocol Heparin Sodium (Porcine) (Heparin Sodium,Porcine 5,000 Unit/Ml Vial) 6,800 unit 80 unit/kg (6800 unit) IVPUSH PROTOCOL BOLUS PRN; Protocol PRN Reason: 80 unit/kg - Heparin Protocol Heparin Sodium/Sodium Chloride () 25,000 unit in 250 mls @ 0 mls/hr IVCONT .Q0M [facility]; Protocol Last Admin: 10/19/20 00:25 Dose: 11.75 units/kg/hr, 10 mls/hr Documented by: PURNIMA Cosigned by: CASIE Ceftriaxone Sodium 1 gm/ (Sodium Chloride) 50 mls @ 100 mls/hr IV Q24H [facility] Insulin Human Lispro (Insulin Lispro 100 Unit/Ml 3 Ml Vial) 0 unit SUBCUT QIDACHS [facility]; Protocol Levothyroxine Sodium (Levothyroxine Sodium 75 Mcg Tablet) 75 mcg PO DAILY [facility] Lorazepam (Lorazepam 0.5 Mg Tablet) 0.5 mg PO TID PRN PRN Reason: Anxiety Melatonin (Melatonin 3 Mg Tablet) 3 mg PO BEDTIME [facility] Montelukast Sodium (Montelukast Sodium 10 Mg Tablet) 10 mg PO DAILY [facility] Ondansetron HCl (Ondansetron Hcl 4 Mg/2 Ml Vial) 4 mg IVPUSH Q8H PRN PRN Reason: Nausea and Vomiting Prednisone (Prednisone 10 Mg Tablet) 10 mg PO DAILY [facility] Pregabalin (Pregabalin 75 Mg Capsule) 75 mg PO BID [facility] Sodium Chloride (0.9 % Sodium Chloride Flush 3 Ml Syringe) 3 ml IVFLUSH QSHIFT [facility] Last Admin: 10/19/20 00:08 Dose: Not Given Documented by: PURNIMA Non-Admin Reason: Medication Discontinued Trazodone HCl (Trazodone Hcl 100 Mg Tablet) 100 mg PO BEDTIME [facility] Vitamin D (Cholecalciferol (Vitamin D3) 25 Mcg Tablet) 50 mcg PO DAILY [facility] Labs CBC & Chem 7: 10/19/20 06:44 10/19/20 06:44 Labs: Laboratory Results - last 24 hr 10/18/20 10/18/20 10/18/20 19:37 19:37 19:37 MCV 92.2 MCH 30.2 MCHC 32.7 RDW 16.3 H Plt Count 234 MPV 9.8 Immature Gran % (Auto) 1.8 H Neut % (Auto) 86.5 H Lymph % (Auto) 6.4 L Glynn % (Auto) 5.1 Eos % (Auto) 0.1 Baso % (Auto) 0.1 Lymph # (Auto) 0.9 L Glynn # (Auto) 0.7 Eos # (Auto) 0.0 Baso # (Auto) 0.0 Abs Immat Gran (auto) 0.25 H Absolute Neuts (auto) 12.1 H Absolute Nucleated RBC 0.050 H Nucleated RBC % (auto) 0.4 H PT INR APTT PTT (Heparin Protocol) O2 Saturation ABG pH at Pt Temp ABG pH (Temp Correct) ABG pCO2 at Pt Temp ABG pCO2 (Temp Corrct ABG pO2 at Pt Temp ABG pO2 (Temp Correct ABG HCO3 ABG Base Excess (Actual) Anion Gap 17 Estim Creat Clear Calc 27.2 Estimated GFR 27 Random Glucose 170 H Lactic Acid Lactic Acid Fup @ 2Hr Lactic Acid Fup @ 4Hr Calcium 9.3 Total Bilirubin 0.9 Direct Bilirubin 0.4 AST 295 H ALT 340 H Alkaline Phosphatase 41 Troponin I High Sens 1706.8 H* B-Natriuretic Peptide 232 H Total Protein 5.9 L Albumin 3.7 Urine Color Urine Appearance Urine pH Ur Specific Herscher Urine Protein Urine Glucose (UA) Urine Ketones Urine Blood Urine Nitrite Ur Leukocyte Esterase Urine RBC Urine WBC Ur Squamous Epith Cells Urine Bacteria Hyaline Casts Granular Casts COVID-19 (LUTHER) COVID-19 [employer] Com 10/18/20 10/18/20 10/18/20 20:20 20:20 21:10 MCV MCH MCHC RDW Plt Count MPV Immature Gran % (Auto) Neut % (Auto) Lymph % (Auto) Glynn % (Auto) Eos % (Auto) Baso % (Auto) Lymph # (Auto) Glynn # (Auto) Eos # (Auto) Baso # (Auto) Abs Immat Gran (auto) Absolute Neuts (auto) Absolute Nucleated RBC Nucleated RBC % (auto) PT INR APTT PTT (Heparin Protocol) O2 Saturation 92.0 ABG pH at Pt Temp 7.51 H ABG pH (Temp Correct) 7.50 H ABG pCO2 at Pt Temp 37 ABG pCO2 (Temp Corrct 38 ABG pO2 at Pt Temp 74 L ABG pO2 (Temp Correct 74 L ABG HCO3 30 H ABG Base Excess (Actual) 7.0 Anion Gap Estim Creat Clear Calc Estimated GFR Random Glucose Lactic Acid 3.3 H* Lactic Acid Fup @ 2Hr Lactic Acid Fup @ 4Hr Calcium Total Bilirubin Direct Bilirubin AST ALT Alkaline Phosphatase Troponin I High Sens B-Natriuretic Peptide Total Protein Albumin Urine Color Urine Appearance Urine pH Ur Specific Herscher Urine Protein Urine Glucose (UA) Urine Ketones Urine Blood Urine Nitrite Ur Leukocyte Esterase Urine RBC Urine WBC Ur Squamous Epith Cells Urine Bacteria Hyaline Casts Granular Casts COVID-19 (LUTHER) Negative COVID-19 Clin Com See Note 10/18/20 10/18/20 10/18/20 22:01 22:41 22:41 MCV MCH MCHC RDW Plt Count MPV Immature Gran % (Auto) Neut % (Auto) Lymph % (Auto) Glynn % (Auto) Eos % (Auto) Baso % (Auto) Lymph # (Auto) Glynn # (Auto) Eos # (Auto) Baso # (Auto) Abs Immat Gran (auto) Absolute Neuts (auto) Absolute Nucleated RBC Nucleated RBC % (auto) PT 12.6 INR 1.1 APTT 31.2 PTT (Heparin Protocol) O2 Saturation ABG pH at Pt Temp ABG pH (Temp Correct) ABG pCO2 at Pt Temp ABG pCO2 (Temp Corrct ABG pO2 at Pt Temp ABG pO2 (Temp Correct ABG HCO3 ABG Base Excess (Actual) Anion Gap Estim Creat Clear Calc Estimated GFR Random Glucose Lactic Acid Lactic Acid Fup @ 2Hr 2.2 H* Lactic Acid Fup @ 4Hr Calcium Total Bilirubin Direct Bilirubin AST ALT Alkaline Phosphatase Troponin I High Sens 6805.2 H* D B-Natriuretic Peptide Total Protein Albumin Urine Color Urine Appearance Urine pH Ur Specific Herscher Urine Protein Urine Glucose (UA) Urine Ketones Urine Blood Urine Nitrite Ur Leukocyte Esterase Urine RBC Urine WBC Ur Squamous Epith Cells Urine Bacteria Hyaline Casts Granular Casts COVID-19 ([facility]HER) COVID-19 Clin Com 10/19/20 10/19/20 10/19/20 00:38 00:59 06:44 MCV 91.7 MCH 30.2 MCHC 32.9 RDW 16.5 H Plt Count 188 MPV 9.6 Immature Gran % (Auto) Neut % (Auto) Lymph % (Auto) Glynn % (Auto) Eos % (Auto) Baso % (Auto) Lymph # (Auto) Glynn # (Auto) Eos # (Auto) Baso # (Auto) Abs Immat Gran (auto) Absolute Neuts (auto) Absolute Nucleated RBC 0.000 Nucleated RBC % (auto) 0.0 PT INR APTT PTT (Heparin Protocol) O2 Saturation ABG pH at Pt Temp ABG pH (Temp Correct) ABG pCO2 at Pt Temp ABG pCO2 (Temp Corrct ABG pO2 at Pt Temp ABG pO2 (Temp Correct ABG HCO3 ABG Base Excess (Actual) Anion Gap Estim Creat Clear Calc Estimated GFR Random Glucose Lactic Acid Lactic Acid Fup @ 2Hr Lactic Acid Fup @ 4Hr 2.3 H* Calcium Total Bilirubin Direct Bilirubin AST ALT Alkaline Phosphatase Troponin I High Sens B-Natriuretic Peptide Total Protein Albumin Urine Color YELLOW Urine Appearance HAZY Urine pH 5.5 Ur Specific Herscher 1.025 Urine Protein 2+ H Urine Glucose (UA) NEG Urine Ketones 5 Urine Blood TRACE Urine Nitrite NEG Ur Leukocyte Esterase 2+ H Urine RBC 1-4 Urine WBC 15-29 H Ur Squamous Epith Cells TRACE Urine Bacteria 1+ Hyaline Casts 0-2 Granular Casts 0-2 COVID-19 (LUTHER) COVID-19 [employer] 10/19/20 10/19/20 06:44 06:44 MCV MCH MCHC RDW Plt Count MPV Immature Gran % (Auto) Neut % (Auto) Lymph % (Auto) Glynn % (Auto) Eos % (Auto) Baso % (Auto) Lymph # (Auto) Glynn # (Auto) Eos # (Auto) Baso # (Auto) Abs Immat Gran (auto) Absolute Neuts (auto) Absolute Nucleated RBC Nucleated RBC % (auto) PT 12.9 INR 1.1 APTT PTT (Heparin Protocol) 102.0 H O2 Saturation ABG pH at Pt Temp ABG pH (Temp Correct) ABG pCO2 at Pt Temp ABG pCO2 (Temp Corrct ABG pO2 at Pt Temp ABG pO2 (Temp Correct ABG HCO3 ABG Base Excess (Actual) Anion Gap 13 Estim Creat Clear Calc 34.7 Estimated GFR 35 Random Glucose 126 H Lactic Acid Lactic Acid Fup @ 2Hr Lactic Acid Fup @ 4Hr Calcium 8.2 L D Total Bilirubin Direct Bilirubin AST ALT Alkaline Phosphatase Troponin I High Sens B-Natriuretic Peptide Total Protein Albumin Urine Color Urine Appearance Urine pH Ur Specific Herscher Urine Protein Urine Glucose (UA) Urine Ketones Urine Blood Urine Nitrite Ur Leukocyte Esterase Urine RBC Urine WBC Ur Squamous Epith Cells Urine Bacteria Hyaline Casts Granular Casts COVID-19 ([facility]UTHER) COVID-19 [employer] Assessment and Plan (1) Severe sepsis: Status: Acute (2) Lactic acidosis: Status: Acute (3) ELICIA (acute kidney injury): Status: Acute (4) UTI (urinary tract infection): Status: Acute (5) CHF exacerbation: Status: Acute (6) Acute and chronic respiratory failure with hypoxia: Status: Acute (7) NSTEMI (non-ST elevated myocardial infarction): Status: Acute Assessment and Plan: 70-year-old female with past medical history COPD and CHF O2 dependent on 4-5 L at baseline found to be obtunded at assisted living after having her O2 off # acute on chronic hypoxic respiratory failure - found obtunded , likely due to hypoxia, most likely after losing her nasal cannula while sleeping, and due to CHF At present alert and oriented x3 initially had some hearing loss now improved head CT negative, continue home oxygen # Severe sepsis due to UTI Patient presented with hypotension, tachycardia, tachypnea and hypoxia, noted to have lactic acidosis, positive urinalysis Two sets of blood cultures obtained patient treated with IV antibiotics, IV fluids sepsis focused examination done WBC improved, urine and blood cultures pending, Continue IV ceftriaxone day 2 # acute CHF exacerbation - had orthopnea, lower extremity edema, elevated BNP, as well as some interstitial markings on chest x-ray, status post IV Lasix 40 b.i.d. currently appear euvolemic dc iv lasix will change to by mouth Lasix - continue strict I&O, daily weight, low-sodium diet - follow echocardiogram # NSTEMI - most likely type 2 in the setting of hypoxia, troponin remains elevated, initial 6805, repeat 7061, patient denies chest pain no prior history of coronary artery disease - continue IV heparin times 48 hours aspirin, statin ,follow echocardiogram, case discussed with Dr. Yadav from Cardiology he feels MRI likely due to hypoxia, will decide about stress testing versus cardiac catheterization After reviewing echo # ELICIA - possibly secondary to hypoxic injury as well as CHF, follow BMP closley stop all nephrotoxins # history of COPD - does not appear to have any exacerbation, denies any increased cough or sputum production, continue home inhalers and prednisone # diabetic - will hold oral antihyperglycemics, continue low-dose sliding scale insulin and diabetic diet # hypothyroidism - continue levothyroxine DVT prophylaxis:hepairn ggt Quality Stroke Does the patient have a stroke diagnosis?: No VTE Prior VTE?: No VTE Risk Level:: Medical - moderate - high VTE Device Contraindication: Treatment Not Indicated VTE Drug Contraindication: N/A - Med Ordered
[2020-10-19 07:52] LABS: Glucose, Whole Blood 121 mg/dL (60-115)
[2020-10-19 07:59] LABS: Lactic Acid 1.5 mmol/L (0.5-2.0)
--- NOTE | 2020-10-19 08:00 | PC.NURSE ---
pt alert and oriented, vss. O2 sat 92-94% on 6L N/C. Heparin infusion at 10ml/hr. PTT at 0645 102.0. Heparin paused for one hour per protocol. No bleeding/bruising noted. Pt assisted to the commode, breakfast given. Pt's son at her bedside. Will continue to monitor.
--- NOTE | 2020-10-19 08:16 | PHA.MEDREC ---
Pharmacy Consult ? Medication Reconciliation Pharmacy has completed the medication reconciliation. LIST FROM MADDIE.
[2020-10-19] MEDS: 0.9 % Sodium Chloride Flush 3 ML SYRINGE IVFLUSH ×3 (08:17→21:29)
[2020-10-19] MEDS: FLUoxetine HCl 20 MG CAPSULE PO (08:18)
[2020-10-19] MEDS: Pregabalin 75 MG CAPSULE PO ×2 (08:18→21:29)
[2020-10-19] MEDS: Cholecalciferol (Vitamin D3) 25 MCG TABLET 50 MCG PO (08:19)
[2020-10-19] MEDS: predniSONE 10 MG TABLET PO ×2 (08:20→08:21)
[2020-10-19] MEDS: Aspirin 81 MG TAB.CHEW PO (08:32)
[2020-10-19] MEDS: LORazepam 0.5 MG TABLET PO ×2 (08:32→21:33)
--- NOTE | 2020-10-19 10:15 | PC.NURSE ---
Heparin infusion remains on hold. Will continue to monitor PTT levels hourly until appropriate level is reached per protocol. Awaiting phlebotomy to redraw levels. Dr. Jada boucher. Pt assisted to commode by this assembly instructions writer. Pt's son is at bedside.
[2020-10-19 10:34] LABS: PTT Heparin Drip 36.4 SEC (53-77.9)
[2020-10-19] MEDS: Levothyroxine Sodium 75 MCG TABLET PO (12:20)
--- NOTE | 2020-10-19 12:22 | PC.NURSE ---
Levothyroxine administered late. Med was not available in ed [facility]. This mortgage underwriter contacted pharmacy to bring medication to ed.
--- NOTE | 2020-10-19 12:39 | P.CONCA_ITS ---
History of Present Illness History of Present Illness Date of Service: 10/19/20 Chief complaint: NSTEMI, CHF Narrative: This is a cardiology consultation regarding elevated troponins. Patient has a history of COPD and is on home oxygen. Patient has been admitted to the hospital with unresponsiveness. She was apparently also found to be hypoxic and somehow the oxygen tank apparently was off. She has recovered on her way to the hospital. Currently she seems to be almost back to normal self. However her troponins were were checked and they were elevated leading to this consultation. Patient herself denies any history of coronary artery disease, myocardial infarction or any other cardiac issues. Denies any chest pain or shortness of breath or any other cardiac symptoms at this time. Review of Systems Review of Systems: Yes all other systems are reviewed and are negative Cardiovascular: Cardiovascular: Reports as per HPI, Reports no additional cardiovascular complaints, Denies acrocyanosis, Denies cool extremities, Denies painful fingertips, Denies chest pain, Denies chest pain at rest, Denies diaphoresis, Denies syncope, Denies irregular heart rhythm, Denies claudication, Denies leg edema, Denies lightheadedness, Denies palpitations and Denies dyspnea Respiratory: Respiratory: Denies dyspnea Neurologic: Denies syncope Endocrine: Endocrine: Denies palpitations PMFSH Past Medical History Medical History (Updated 10/19/20 @ 07:52 by Elzia Elias MD) CHF (congestive heart failure) COPD (chronic obstructive pulmonary disease) Hyperlipidemia Hypertension Hypothyroidism Family History Pertinent family history: No significant family history per patient. Social History Social History (Updated 10/19/20 @ 06:41 by Cony Arreola MD) Alcohol intake: never Patient Tobacco Use Status: Former Tobacco user Use of substances other than those prescribed or required for medical reasons: No Advance Directives: No Meds Allergies Allergy/AdvReac Type Severity Reaction Status Date / Time Seasonal IC Allergy Unknown Uncoded 02/16/19 00:00 seasonal IC Allergy Unknown Uncoded 12/19/18 00:00 Active Medications: Current Medications Generic Name Dose Route Start Last Admin Trade Name Freq PRN Reason Stop Dose Admin Acetaminophen 650 mg 10/18/20 23:21 Acetaminophen 325 Mg Tablet PO Q6H PRN Pain, Mild (Pain Scale 1-3) Albuterol Sulfate 0.083 mg 10/19/20 09:00 Albuterol Sulfate (0.083%) 2.5 Mg/3 Ml Vial.Neb INHALE 6XD PRN Wheezing Albuterol Sulfate 1 puff 10/19/20 06:30 Albuterol Sulfate 90 Mcg 8 Gm Inhaler INHALE Q4H PRN Wheezing Albuterol/Ipratropium 3 ml 10/19/20 08:00 10/19/20 11:25 Albuterol/Iprat 2.5/0.5mg 3 Ml Ampul.Neb INHALE 3 ml RQ4H WHILE AWAKE SIDRA Administration Albuterol/Ipratropium 3 ml 10/19/20 04:14 10/19/20 04:34 Albuterol/Iprat 2.5/0.5mg 3 Ml Ampul.Neb INHALE 3 ml RQ4H PRN Administration Shortness of Breath/Wheezing Aspirin 81 mg 10/19/20 09:00 10/19/20 08:32 Aspirin 81 Mg Tab.Chew PO 81 mg DAILY SIDRA Administration Atorvastatin Calcium 80 mg 10/19/20 21:00 Atorvastatin Calcium 80 Mg Tablet PO BEDTIME SIDRA Azithromycin 250 mg 10/21/20 09:00 Azithromycin 250 Mg Tablet PO MoWeFr@0900 SIDRA Dextrose 25 gm 10/19/20 06:45 Dextrose 50 % 25 Gm/50 Ml Vial IVPUSH Q15M PRN per Hypoglycemia Standing Ord. Protocol Docusate Sodium 100 mg 10/18/20 23:21 Docusate Sodium 100 Mg Capsule PO DAILY PRN Constipation Fluoxetine HCl 20 mg 10/19/20 09:00 10/19/20 08:18 Fluoxetine Hcl 20 Mg Capsule PO 20 mg DAILY SIDRA Administration Fluticasone/Vilanterol 1 puff 10/19/20 08:00 10/19/20 07:45 Fluticasone/Vilanterol 100/25 Blst.W.Dev INHALE Not Given RDAILY SIDRA Furosemide 40 mg 10/18/20 23:25 10/19/20 08:20 Furosemide 40 Mg/4 Ml Vial IVPUSH 40 mg BID@0900,1800 SIDRA Administration Protocol Glucose 15 gm 10/19/20 06:45 Glucose Gel 15 Gm Gel..Gram. PO Q15M PRN per Hypoglycemia Standing Ord. Protocol Heparin Sodium (Porcine) 3,400 unit 10/18/20 23:28 Heparin Sodium,Porcine 5,000 Unit/Ml Vial 40 unit/kg (3400 unit) IVPUSH PROTOCOL BOLUS PRN 40 unit/kg - Heparin Protocol Protocol Heparin Sodium (Porcine) 6,800 unit 10/18/20 23:28 Heparin Sodium,Porcine 5,000 Unit/Ml Vial 80 unit/kg (6800 unit) IVPUSH PROTOCOL BOLUS PRN 80 unit/kg - Heparin Protocol Protocol Heparin Sodium/Sodium Chloride 25,000 unit in 250 mls @ 0 mls/hr 10/18/20 23:30 10/19/20 10:53 IVCONT 8.75 units/kg/hr .Q0M SIDRA 7.45 mls/hr Titration Protocol Per Protocol Ceftriaxone Sodium 1 gm/ 50 mls @ 100 mls/hr 10/19/20 22:00 Sodium Chloride IV Q24H SIDRA Insulin Human Lispro 0 unit 10/19/20 07:30 10/19/20 08:12 Insulin Lispro 100 Unit/Ml 3 Ml Vial SUBCUT Not Given QIDACHS SIDRA Protocol Levothyroxine Sodium 75 mcg 10/19/20 09:00 10/19/20 12:20 Levothyroxine Sodium 75 Mcg Tablet PO 75 mcg DAILY SIDRA Administration Lorazepam 0.5 mg 10/19/20 06:29 10/19/20 08:32 Lorazepam 0.5 Mg Tablet PO 0.5 mg TID PRN Administration Anxiety Melatonin 3 mg 10/19/20 21:00 Melatonin 3 Mg Tablet PO BEDTIME SIDRA Montelukast Sodium 10 mg 10/19/20 21:00 Montelukast Sodium 10 Mg Tablet PO BEDTIME SIDRA Ondansetron HCl 4 mg 10/18/20 23:21 Ondansetron Hcl 4 Mg/2 Ml Vial IVPUSH Q8H PRN Nausea and Vomiting Prednisone 10 mg 10/19/20 09:00 10/19/20 08:21 Prednisone 10 Mg Tablet PO 10 mg DAILY SIDRA Administration Pregabalin 75 mg 10/19/20 09:00 10/19/20 08:18 Pregabalin 75 Mg Capsule PO 75 mg BID SIDRA Administration Sodium Chloride 3 ml 10/19/20 00:00 10/19/20 08:17 0.9 % Sodium Chloride Flush 3 Ml Syringe IVFLUSH 3 ml QSHIFT SIDRA Administration Trazodone HCl 100 mg 10/19/20 21:00 Trazodone Hcl 100 Mg Tablet PO BEDTIME SIDRA Vitamin D 50 mcg 10/19/20 09:00 10/19/20 08:19 Cholecalciferol (Vitamin D3) 25 Mcg Tablet PO 50 mcg DAILY SIDRA Administration Home Medications Medication Instructions Recorded Confirmed Last Taken Type acetaminophen 325 mg tablet 650 mg PO Q4H PRN 10/19/20 10/19/20 Unknown History albuterol sulfate 2.5 mg INHALATION Q4H PRN 10/19/20 10/19/20 Unknown History albuterol sulfate 90 mcg/actuation 2 puff INHALATION Q4-6H PRN 10/19/20 10/19/20 Unknown History aerosol inhaler aspirin 81 mg chewable tablet 1 tab PO DAILY 10/19/20 10/19/20 Unknown History azithromycin 250 mg tablet 1 tab PO MOWEFR@0900 10/19/20 10/19/20 Unknown History cholecalciferol (vitamin D3) 50 1 cap PO DAILY 10/19/20 10/19/20 Unknown History mcg (2,000 unit) capsule (Vitamin D3) dextromethorphan-guaifenesin 10 10 ml PO Q4H PRN 10/19/20 10/19/20 Unknown History mg-100 mg/5 mL oral syrup fluoxetine 20 mg capsule 1 cap PO DAILY 10/19/20 10/19/20 Unknown History furosemide 20 mg tablet 20 mg PO DAILY PRN 10/19/20 10/19/20 Unknown History furosemide 40 mg tablet 1 tab PO DAILY 10/19/20 10/19/20 Unknown History guaifenesin 400 mg tablet (Mucus 400 mg PO Q12H PRN 10/19/20 10/19/20 Unknown History Relief) levothyroxine 75 mcg tablet 1 tab PO DAILY 10/19/20 10/19/20 Unknown History lisinopril 2.5 mg tablet 1 tab PO DAILY 10/19/20 10/19/20 Unknown History loratadine 10 mg tablet 1 tab PO DAILY 10/19/20 10/19/20 Unknown History lorazepam 0.5 mg tablet 1 tab PO TID PRN 10/19/20 10/19/20 Unknown History magnesium hydroxide 400 mg/5 mL 30 ml PO DAILY PRN 10/19/20 10/19/20 Unknown History oral suspension (Milk of Magnesia) meclizine 12.5 mg tablet 6.25 mg PO BID PRN 10/19/20 10/19/20 Unknown History melatonin 3 mg tablet 1 tab PO BEDTIME 10/19/20 10/19/20 Unknown History mometasone-formoterol HFA 100 2 puff INHALATION BID 10/19/20 10/19/20 Unknown Hi story mcg-5 mcg/actuation aerosol inhaler (Dulera) montelukast 10 mg tablet 1 tab PO BEDTIME 10/19/20 10/19/20 Unknown History morphine 15 mg immediate release 0.5 tab PO BID 10/19/20 10/19/20 Unknown History tablet multivitamin with minerals-ferrous 1 tab PO DAILY 10/19/20 10/19/20 Unknown History sulfate 4.5 mg iron tablet (One Daily Multivitamins with Minerals) nystatin 100,000 unit/gram topical 1 appl TOPICAL BID PRN 10/19/20 10/19/20 Unknown History cream prednisone 10 mg tablet 1 tab PO DAILY 10/19/20 10/19/20 Unknown History pregabalin 75 mg capsule 1 cap PO BID 10/19/20 10/19/20 Unknown History rosuvastatin 20 mg tablet 1 tab PO BEDTIME 10/19/20 10/19/20 Unknown History sennosides 8.6 mg-docusate sodium 1 tab-cap PO BID PRN 10/19/20 10/19/20 Unknown History 50 mg capsule (Senna Plus) sodium chloride 0.65 % nasal spray 1 - 2 spray INTRANASAL Q1H PRN 10/19/20 10/19/20 Unknown History aerosol (Deep Sea Nasal) trazodone 100 mg tablet 1 tab PO BEDTIME 10/19/20 10/19/20 Unknown History triamcinolone acetonide 0.025 % 1 applic TOPICAL BID PRN 10/19/20 10/19/20 Unknown History topical cream umeclidinium 62.5 mcg/actuation 1 inh INHALATION DAILY 10/19/20 10/19/20 Unknown History blister powder for inhalation (Incruse Ellipta) Physical Exam Vital Signs: Vital Signs: Last Vital Signs Temp 98.7 F 10/18/20 21:05 Pulse 78 10/19/20 11:26 Resp 22 H 10/19/20 11:01 BP 148/86 H 10/19/20 11:01 Pulse Ox 96 10/19/20 11:01 Oxygen Flow Rate 5 10/18/20 19:35 Body Mass Index 35.4 Const: General: cooperative and no acute distress HENMT: Other: Unremarkable Neck: Neck: Yes normal visual inspection Chest: Chest palpation & inspection: normal inspection of the chest Resp: Auscultation: wheezes Cardio: Jugular venous distension: no JVD Palpation: normal PMI Heart sounds: S1 normal heart sound present, S2 normal heart sound present, no gallops, no murmurs and no rubs GI: Palpation (GI): Soft to palpation Back/Spine/Pelvis: Other: unremarkable Skin: General skin exam: no rashes or lesions noted Neuro: Cranial nerves: Yes Other cranial nerve findings present Extrem: General: Yes no clubbing, cyanosis or edema Psych: Mental Status: other Results Labs and Meds Result diagrams: 10/19/20 06:44 10/19/20 06:44 Lab results: Laboratory Results - last 24 hr 10/18/20 10/18/20 10/18/20 19:37 19:37 19:37 WBC 14.0 H RBC 4.11 L Hgb 12.4 Hct 37.9 MCV 92.2 MCH 30.2 MCHC 32.7 RDW 16.3 H Plt Count 234 MPV 9.8 Immature Gran % (Auto) 1.8 H Neut % (Auto) 86.5 H Lymph % (Auto) 6.4 L [place] % (Auto) 5.1 Eos % (Auto) 0.1 Baso % (Auto) 0.1 Lymph # (Auto) 0.9 L [place] # (Auto) 0.7 Eos # (Auto) 0.0 Baso # (Auto) 0.0 Abs Immat Gran (auto) 0.25 H Absolute Neuts (auto) 12.1 H Absolute Nucleated RBC 0.050 H Nucleated RBC % (auto) 0.4 H PT INR APTT PTT (Heparin Protocol) O2 Saturation ABG pH at Pt Temp ABG pH (Temp Correct) ABG pCO2 at Pt Temp ABG pCO2 (Temp Corrct ABG pO2 at Pt Temp ABG pO2 (Temp Correct ABG HCO3 ABG Base Excess (Actual) Sodium 139 Potassium 3.5 Chloride 96 Carbon Dioxide 30 H Anion Gap 17 BUN 19 H Creatinine 1.85 H Estim Creat Clear Calc 27.2 Estimated GFR 27 POC Glucose Random Glucose 170 H Lactic Acid Lactic Acid Fup @ 2Hr Lactic Acid Fup @ 4Hr Calcium 9.3 Total Bilirubin 0.9 Direct Bilirubin 0.4 AST 295 H ALT 340 H Alkaline Phosphatase 41 Troponin I High Sens 1706.8 H* B-Natriuretic Peptide 232 H Total Protein 5.9 L Albumin 3.7 Urine Color Urine Appearance Urine pH Ur Specific Boomer Urine Protein Urine Glucose (UA) Urine Ketones Urine Blood Urine Nitrite Ur Leukocyte Esterase Urine RBC Urine WBC Ur Squamous Epith Cells Urine Bacteria Hyaline Casts Granular Casts COVID-19 ([facility]) COVID-19 Clin Com 10/18/20 10/18/20 10/18/20 20:20 20:20 21:10 WBC RBC Hgb Hct MCV MCH MCHC RDW Plt Count MPV Immature Gran % (Auto) Neut % (Auto) Lymph % (Auto) [place] % (Auto) Eos % (Auto) Baso % (Auto) Lymph # (Auto) [place] # (Auto) Eos # (Auto) Baso # (Auto) Abs Immat Gran (auto) Absolute Neuts (auto) Absolute Nucleated RBC Nucleated RBC % (auto) PT INR APTT PTT (Heparin Protocol) O2 Saturation 92.0 ABG pH at Pt Temp 7.51 H ABG pH (Temp Correct) 7.50 H ABG pCO2 at Pt Temp 37 ABG pCO2 (Temp Corrct 38 ABG pO2 at Pt Temp 74 L ABG pO2 (Temp Correct 74 L ABG HCO3 30 H ABG Base Excess (Actual) 7.0 Sodium Potassium Chloride Carbon Dioxide Anion Gap BUN Creatinine Estim Creat Clear Calc Estimated GFR POC Glucose Random Glucose Lactic Acid 3.3 H* Lactic Acid Fup @ 2Hr Lactic Acid Fup @ 4Hr Calcium Total Bilirubin Direct Bilirubin AST ALT Alkaline Phosphatase Troponin I High Sens B-Natriuretic Peptide Total Protein Albumin Urine Color Urine Appearance Urine pH Ur Specific [place]omer Urine Protein Urine Glucose (UA) Urine Ketones Urine Blood Urine Nitrite Ur Leukocyte Esterase Urine RBC Urine WBC Ur Squamous Epith Cells Urine Bacteria Hyaline Casts Granular Casts COVID-19 ([facility]) Negative COVID-19 Clin Com See Note 10/18/20 10/18/20 10/18/20 22:01 22:41 22:41 WBC RBC Hgb Hct MCV MCH MCHC RDW Plt Count MPV Immature Gran % (Auto) Neut % (Auto) Lymph % (Auto) [place] % (Auto) Eos % (Auto) Baso % (Auto) Lymph # (Auto) [place] # (Auto) Eos # (Auto) Baso # (Auto) Abs Immat Gran (auto) Absolute Neuts (auto) Absolute Nucleated RBC Nucleated RBC % (auto) PT 12.6 INR 1.1 APTT 31.2 PTT (Heparin Protocol) O2 Saturation ABG pH at Pt Temp ABG pH (Temp Correct) ABG pCO2 at Pt Temp ABG pCO2 (Temp Corrct ABG pO2 at Pt Temp ABG pO2 (Temp Correct ABG HCO3 ABG Base Excess (Actual) Sodium Potassium Chloride Carbon Dioxide Anion Gap BUN Creatinine Estim Creat Clear Calc Estimated GFR POC Glucose Random Glucose Lactic Acid Lactic Acid Fup @ 2Hr 2.2 H* Lactic Acid Fup @ 4Hr Calcium Total Bilirubin Direct Bilirubin AST ALT Alkaline Phosphatase Troponin I High Sens 6805.2 H* D B-Natriuretic Peptide Total Protein Albumin Urine Color Urine Appearance Urine pH Ur Specific [place]omer Urine Protein Urine Glucose (UA) Urine Ketones Urine Blood Urine Nitrite Ur Leukocyte Esterase Urine RBC Urine WBC Ur Squamous Epith Cells Urine Bacteria Hyaline Casts Granular Casts COVID-19 ([facility]) COVID-19 Clin Com 10/19/20 10/19/20 10/19/20 00:38 00:59 06:44 WBC 9.1 RBC 3.51 L Hgb 10.6 L Hct 32.2 L MCV 91.7 MCH 30.2 MCHC 32.9 RDW 16.5 H Plt Count 188 MPV 9.6 Immature Gran % (Auto) Neut % (Auto) Lymph % (Auto) [place] % (Auto) Eos % (Auto) Baso % (Auto) Lymph # (Auto) [place] # (Auto) Eos # (Auto) Baso # (Auto) Abs Immat Gran (auto) Absolute Neuts (auto) Absolute Nucleated RBC 0.000 Nucleated RBC % (auto) 0.0 PT INR APTT PTT (Heparin Protocol) O2 Saturation ABG pH at Pt Temp ABG pH (Temp Correct) ABG pCO2 at Pt Temp ABG pCO2 (Temp Corrct ABG pO2 at Pt Temp ABG pO2 (Temp Correct ABG HCO3 ABG Base Excess (Actual) Sodium Potassium Chloride Carbon Dioxide Anion Gap BUN Creatinine Estim Creat Clear Calc Estimated GFR POC Glucose Random Glucose Lactic Acid Lactic Acid Fup @ 2Hr Lactic Acid Fup @ 4Hr 2.3 H* Calcium Total Bilirubin Direct Bilirubin AST ALT Alkaline Phosphatase Troponin I High Sens B-Natriuretic Peptide Total Protein Albumin Urine Color YELLOW Urine Appearance HAZY Urine pH 5.5 Ur Specific Boomer 1.025 Urine Protein 2+ H Urine Glucose (UA) NEG Urine Ketones 5 Urine Blood TRACE Urine Nitrite NEG Ur Leukocyte Esterase 2+ H Urine RBC 1-4 Urine WBC 15-29 H Ur Squamous Epith Cells TRACE Urine Bacteria 1+ Hyaline Casts 0-2 Granular Casts 0-2 COVID-19 ([facility]) COVID-19 [employer] Com 10/19/20 10/19/20 10/19/20 06:44 06:44 07:40 WBC RBC Hgb Hct MCV MCH MCHC RDW Plt Count MPV Immature Gran % (Auto) Neut % (Auto) Lymph % (Auto) [place] % (Auto) Eos % (Auto) Baso % (Auto) Lymph # (Auto) [place] # (Auto) Eos # (Auto) Baso # (Auto) Abs Immat Gran (auto) Absolute Neuts (auto) Absolute Nucleated RBC Nucleated RBC % (auto) PT 12.9 INR 1.1 APTT PTT (Heparin Protocol) 102.0 H O2 Saturation ABG pH at Pt Temp ABG pH (Temp Correct) ABG pCO2 at Pt Temp ABG pCO2 (Temp Corrct ABG pO2 at Pt Temp ABG pO2 (Temp Correct ABG HCO3 ABG Base Excess (Actual) Sodium 141 Potassium 2.9 L Chloride 102 Carbon Dioxide 29 Anion Gap 13 BUN 21 H Creatinine 1.45 H Estim Creat Clear Calc 34.7 Estimated GFR 35 POC Glucose Random Glucose 126 H Lactic Acid Lactic Acid Fup @ 2Hr Lactic Acid Fup @ 4Hr Calcium 8.2 L D Total Bilirubin Direct Bilirubin AST ALT Alkaline Phosphatase Troponin I High Sens 7061.4 H* B-Natriuretic Peptide Total Protein Albumin Urine Color Urine Appearance Urine pH Ur Specific [place] Urine Protein Urine Glucose (UA) Urine Ketones Urine Blood Urine Nitrite Ur Leukocyte Esterase Urine RBC Urine WBC Ur Squamous Epith Cells Urine Bacteria Hyaline Casts Granular Casts COVID-19 ([facility]) COVID-19 [employer] Com 10/19/20 10/19/20 10/19/20 07:40 07:48 10:11 WBC RBC Hgb Hct MCV MCH MCHC RDW Plt Count MPV Immature Gran % (Auto) Neut % (Auto) Lymph % (Auto) [place] % (Auto) Eos % (Auto) Baso % (Auto) Lymph # (Auto) [place] # (Auto) Eos # (Auto) Baso # (Auto) Abs Immat Gran (auto) Absolute Neuts (auto) Absolute Nucleated RBC Nucleated RBC % (auto) PT INR APTT PTT (Heparin Protocol) 36.4 L D O2 Saturation ABG pH at Pt Temp ABG pH (Temp Correct) ABG pCO2 at Pt Temp ABG pCO2 (Temp Corrct ABG pO2 at Pt Temp ABG pO2 (Temp Correct ABG HCO3 ABG Base Excess (Actual) Sodium Potassium Chloride Carbon Dioxide Anion Gap BUN Creatinine Estim Creat Clear Calc Estimated GFR POC Glucose 121 H Random Glucose Lactic Acid 1.5 Lactic Acid Fup @ 2Hr Lactic Acid Fup @ 4Hr Calcium Total Bilirubin Direct Bilirubin AST ALT Alkaline Phosphatase Troponin I High Sens B-Natriuretic Peptide Total Protein Albumin Urine Color Urine Appearance Urine pH Ur Specific [place] Urine Protein Urine Glucose (UA) Urine Ketones Urine Blood Urine Nitrite Ur Leukocyte Esterase Urine RBC Urine WBC Ur Squamous Epith Cells Urine Bacteria Hyaline Casts Granular Casts COVID-19 ([facility]) COVID-19 Clin Com ECG Interpretation: EKG shows sinus rhythm at 92/Min; cas depression in the lateral leads. Also nonspecific changes in other leads. No prior EKGs for comparison. Imaging Radiologist's impression: Impressions Chest X-Ray 10/18/20 19:31 IMPRESSION: Prominent interstitial markings could be associated with mild edema versus a small airways process. No dense consolidation. Head CT 10/18/20 19:49 IMPRESSION: No acute intracranial pathology. Chronic volume loss with small vessel ischemic change. Head CT 10/18/20 23:15 IMPRESSION: No acute intracranial pathology. Extensive chronic white matter small vessel ischemic changes. Assessment and Plan (1) NSTEMI (non-ST elevated myocardial infarction): Status: Acute High sensitive troponins are markedly elevated peaking at 6805. Cardiac BNP is 232. Hypokalemia noted. Creatinine slightly elevated at 1.45. CT chest shows no acute pathology. Extensive chronic white matter ischemic changes. Chest x-ray reported to have prominent interstitial markings that could be associated with mild edema or small airway disease. Overall, hypoxia could have led to non ST-elevation myocardial infarction. She could also have underlying coronary disease. Continue IV heparin for 48 hours. Aspirin statins. Echocardiogram Wednesday. Then need to decide between stress testing versus cardiac catheterization. Procedures Date of Service Date of Service: 10/19/20
[2020-10-19 14:33] LABS: Glucose, Whole Blood 264 mg/dL (60-115)
--- NOTE | 2020-10-19 15:55 | MHC.CM.PN ---
Attempted to meet with patient in regards to discharge planning. Nursing care currently being provided. Spoke with patient's son/HCP, Jose R via telephone at [phone]. Patient lives at [facility], ambulates independently, is oxygen dependent and is active with the [facility]. PCP is Dr Junior. Patient typically goes to [facility] for her care. Copy of HCP obtained from [facility]. Anticipate patient will return to [facility] via BLS when medically stable. Patient received 2 Covid vaccines. IMM explained and left at patient's bedside. Continue to monitor for d/c needs.
[2020-10-19 17:07] LABS: Glucose, Whole Blood 253 mg/dL (60-115)
[2020-10-19] MEDS: Insulin Lispro 100 UNIT/ML 3 ML VIAL SUBCUT (17:07)
[2020-10-19] MEDS: Heparin Sodium,Porcine 5,000 UNIT/ML VIAL 3400 UNIT IVPUSH (18:48)
--- NOTE | 2020-10-19 18:53 | PC.NURSE ---
Ptt 50.0, bolus given and dose rate increased by two per protocol. Pt due for ptt redraw in 6hrs (2300). Pt tolerating heparin infusion well. no bleeding/bruising noted. Pt assisted to commode a few times. Pt currently in bed knitting, awaiting bed assignment. vs stable.
--- NOTE | 2020-10-19 19:45 | PC.NURSE ---
EMS at bedside for transport.
[2020-10-19 20:21] LABS: Glucose, Whole Blood 108 mg/dL (60-115)
[2020-10-19] MEDS: cefTRIAXone sodium 1 GM in 0.9 % Sodium Chloride 50 ML IV (21:28)
[2020-10-19] MEDS: Montelukast Sodium 10 MG TABLET PO (21:29)
[2020-10-19] MEDS: traZODone HCL 100 MG TABLET PO (21:29)
[2020-10-19] MEDS: Atorvastatin Calcium 80 MG TABLET PO (21:29)
[2020-10-19] MEDS: Melatonin 3 MG TABLET PO (21:29)
[2020-10-20] VITALS (10 sets, daily range): BP systolic 125–169; BP diastolic 71–90; PULSE 65–78; RESP 18–22; TEMP 36.2–37.2; O2SAT 91–96; BMI 34.1
[2020-10-20 00:57] LABS: PTT Heparin Drip 99.6 SEC (53-77.9)
[2020-10-20] MEDS: Heparin Sodium,Porcine/1/2NS 25,000 UNIT/250 ML IV.SOLN 10.75 UNIT IVCONT (02:00)
[2020-10-20] MEDS: Fluticasone/Vilanterol 100/25 BLST.W.DEV 1 PUFF INHALE (07:35)
[2020-10-20] MEDS: Albuterol/Iprat 2.5/0.5MG 3 ML AMPUL.NEB INHALE ×3 (07:35→16:14)
[2020-10-20 07:48] LABS: Glucose, Whole Blood 118 mg/dL (60-115)
[2020-10-20 08:11] LABS: PTT Heparin Drip 45.6 SEC (53-77.9)
[2020-10-20] MEDS: Heparin Sodium,Porcine 5,000 UNIT/ML VIAL 3400 UNIT IVPUSH (08:27)
[2020-10-20] MEDS: Levothyroxine Sodium 75 MCG TABLET PO (08:29)
[2020-10-20] MEDS: Aspirin 81 MG TAB.CHEW PO (08:29)
[2020-10-20] MEDS: Pregabalin 75 MG CAPSULE PO ×2 (08:29→19:59)
[2020-10-20] MEDS: Cholecalciferol (Vitamin D3) 25 MCG TABLET 50 MCG PO (08:29)
[2020-10-20] MEDS: predniSONE 10 MG TABLET PO (08:29)
[2020-10-20] MEDS: Morphine Sulfate Immed Release 15 MG TABLET 7.5 MG PO ×2 (08:31→20:00)
[2020-10-20] MEDS: FLUoxetine HCl 20 MG CAPSULE PO (08:31)
[2020-10-20] MEDS: 0.9 % Sodium Chloride Flush 3 ML SYRINGE IVFLUSH ×3 (08:31→20:02)
[2020-10-20 09:03] LABS: Anion Gap 15 (12-20); Blood Urea Nitrogen 14 mg/dL (9-16); Calcium 8.7 mg/dL (8.4-10.2); Carbon Dioxide 31 mmol/L (22-29); Chloride 101 mmol/L (96-108); Estimated Glomerular Filt Rate 59; Glucose Random 117 mg/dL (60-115); Potassium 3.1 mmol/L (3.3-5.1); Sodium 144 mmol/L (135-145)
--- NOTE | 2020-10-20 10:20 | P.PNIM_ITS ---
Subjective Subjective Date of Service: 10/20/20 Interval History: Patient being followed for non ST-elevation CT/sepsis Denies chest pain, no shortness of breath, no PND, no orthopnea, her hearing has improved. Review of Systems General no headache, no dizziness, no fever chills. CVS no chest pain, no palpitation. Respiratory no cough, no sob. Gastrointestinal no nausea no vomiting, no abdominal pain Review of Systems: Yes all other systems are reviewed and are negative Physical Exam Vital Signs: Vital Signs: Last Vital Signs Temp 98.2 F 10/20/20 07:19 Pulse 76 10/20/20 07:36 Resp 19 10/20/20 07:19 BP 156/90 H 10/20/20 07:19 Pulse Ox 96 10/20/20 07:19 Oxygen Flow Rate 5 10/18/20 19:35 Body Mass Index 34.1 General? no acute distress ,alert, o riented x3.? Neck supple no JVD. CVS ? regular rate rhy thm, Respiratory l ungs clear to ausc ultation, diminish ed breath sounds, no respiratory dis tress, no wheeze, no rhonchi. Gastro intestinal abdomen soft, nontender, bowel sounds audib le, no guarding , no rigidity. Extre mities no edema. N euro nonfocal, mov ing all 4 extremit y, speech clear. S kin no rash Objective Data Active Medications Acetaminophen (Acetaminophen 325 Mg Tablet) 650 mg PO Q6H PRN PRN Reason: Pain, Mild (Pain Scale 1-3) Albuterol Sulfate (Albuterol Sulfate (0.083%) 2.5 Mg/3 Ml Vial.Neb) 0.083 mg INHALE 6XD PRN PRN Reason: Wheezing Albuterol Sulfate (Albuterol Sulfate 90 Mcg 8 Gm Inhaler) 1 puff INHALE Q4H PRN PRN Reason: Wheezing Albuterol/Ipratropium (Albuterol/Iprat 2.5/0.5mg 3 Ml Ampul.Neb) 3 ml INHALE RQ4H WHILE AWAKE [facility] Last Admin: 10/20/20 07:35 Dose: 3 ml Documented by: LELAND Albuterol/Ipratropium (Albuterol/Iprat 2.5/0.5mg 3 Ml Ampul.Neb) 3 ml INHALE RQ4H PRN PRN Reason: Shortness of Breath/Wheezing Last Admin: 10/19/20 04:34 Dose: 3 ml Documented by: CLAUDY Aspirin (Aspirin 81 Mg Tab.Chew) 81 mg PO DAILY [facility] Last Admin: 10/20/20 08:29 Dose: 81 mg Documented by: FIGUEROA Atorvastatin Calcium (Atorvastatin Calcium 80 Mg Tablet) 80 mg PO BEDTIME [facility] Last Admin: 10/19/20 21:29 Dose: 80 mg Documented by: YESSY Azithromycin (Azithromycin 250 Mg Tablet) 250 mg PO MoWeFr@0900 [facility] Dextrose (Dextrose 50 % 25 Gm/50 Ml Vial) 25 gm IVPUSH Q15M PRN; Protocol PRN Reason: per Hypoglycemia Standing Ord. Docusate Sodium (Docusate Sodium 100 Mg Capsule) 100 mg PO DAILY PRN PRN Reason: Constipation Fluoxetine HCl (Fluoxetine Hcl 20 Mg Capsule) 20 mg PO DAILY [facility] Last Admin: 10/20/20 08:31 Dose: 20 mg Documented by: FIGUEROA Fluticasone/Vilanterol (Fluticasone/Vilanterol 100/25 Blst.W.Dev) 1 puff INHALE RDAILY [facility] Last Admin: 10/20/20 07:35 Dose: 1 puff Documented by: ZACKSCNii Glucose (Glucose Gel 15 Gm Gel..Gram.) 15 gm PO Q15M PRN; Protocol PRN Reason: per Hypoglycemia Standing Ord. Heparin Sodium (Porcine) (Heparin Sodium,Porcine 5,000 Unit/Ml Vial) 3,400 unit 40 unit/kg (3400 unit) IVPUSH PROTOCOL BOLUS PRN; Protocol PRN Reason: 40 unit/kg - Heparin Protocol Last Admin: 10/20/20 08:27 Dose: 3,400 unit Documented by: FIGUEROA Heparin Sodium (Porcine) (Heparin Sodium,Porcine 5,000 Unit/Ml Vial) 6,800 unit 80 unit/kg (6800 unit) IVPUSH PROTOCOL BOLUS PRN; Protocol PRN Reason: 80 unit/kg - Heparin Protocol Heparin Sodium/Sodium Chloride () 25,000 unit in 250 mls @ 0 mls/hr IVCONT .Q0M [facility]; Protocol Last Titration: 10/20/20 08:26 Dose: 9.75 units/kg/hr, 8.3 mls/hr Documented by: FIGUEROA Cosigned by: EARL Ceftriaxone Sodium 1 gm/ (Sodium Chloride) 50 mls @ 100 mls/hr IV Q24H [facility] Last Infusion: 10/19/20 22:38 Dose: 0 mls/hr Documented by: YESSY Insulin Human Lispro (Insulin Lispro 100 Unit/Ml 3 Ml Vial) 0 unit SUBCUT QIDACHS [facility]; Protocol Last Admin: 10/20/20 07:52 Dose: Not Given Documented by: FIGUEROA Non-Admin Reason: No Insulin Coverage Levothyroxine Sodium (Levothyroxine Sodium 75 Mcg Tablet) 75 mcg PO DAILY [facility] Last Admin: 10/20/20 08:29 Dose: 75 mcg Documented by: FIGUEROA Lorazepam (Lorazepam 0.5 Mg Tablet) 0.5 mg PO TID PRN PRN Reason: Anxiety Last Admin: 10/19/20 21:33 Dose: 0.5 mg Documented by: YESSY Melatonin (Melatonin 3 Mg Tablet) 3 mg PO BEDTIME [facility] Last Admin: 10/19/20 21:29 Dose: 3 mg Documented by: YESYS Montelukast Sodium (Montelukast Sodium 10 Mg Tablet) 10 mg PO BEDTIME [facility] Last Admin: 10/19/20 21:29 Dose: 10 mg Documented by: YESSY Morphine Sulfate (Morphine Sulfate Immed Release 15 Mg Tablet) 7.5 mg PO BID [facility] Last Admin: 10/20/20 08:31 Dose: 7.5 mg Documented by: FIGUEROA Ondansetron HCl (Ondansetron Hcl 4 Mg/2 Ml Vial) 4 mg IVPUSH Q8H PRN PRN Reason: Nausea and Vomiting Prednisone (Prednisone 10 Mg Tablet) 10 mg PO DAILY [facility] Last Admin: 10/19/20 08:21 Dose: 10 mg Documented by: DIANA Pregabalin (Pregabalin 75 Mg Capsule) 75 mg PO BID [facility] Last Admin: 10/20/20 08:29 Dose: 75 mg Documented by: FIGUEROA Sodium Chloride (0.9 % Sodium Chloride Flush 3 Ml Syringe) 3 ml IVFLUSH QSHIFT [facility] Last Admin: 10/20/20 08:31 Dose: 3 ml Documented by: FIGUEROA Trazodone HCl (Trazodone Hcl 100 Mg Tablet) 100 mg PO BEDTIME [facility] Last Admin: 10/19/20 21:29 Dose: 100 mg Documented by: MARVINLN Vitamin D (Cholecalciferol (Vitamin D3) 25 Mcg Tablet) 50 mcg PO DAILY [facility] Last Admin: 10/20/20 08:29 Dose: 50 mcg Documented by: FIGUEROA Labs CBC & Chem 7: 10/19/20 06:44 10/20/20 07:45 Labs: Laboratory Results - last 24 hr 10/19/20 10/19/20 10/19/20 10:11 14:27 16:59 PTT (Heparin Protocol) 36.4 L D 50.0 L D Anion Gap Estim Creat Clear Calc Estimated GFR POC Glucose 264 H Random Glucose Calcium 10/19/20 10/19/20 10/20/20 17:00 20:17 00:43 PTT (Heparin Protocol) 99.6 H D Anion Gap Estim Creat Clear Calc Estimated GFR POC Glucose 253 H 108 Random Glucose Calcium 10/20/20 10/20/20 10/20/20 07:20 07:45 07:45 PTT (Heparin Protocol) 45.6 L D Anion Gap 15 Estim Creat Clear Calc 53.0 Estimated GFR 59 POC Glucose 118 H Random Glucose 117 H Calcium 8.7 D Microbiology Microbiology Results: Microbiology 10/18/20 20:20 Blood Culture - Preliminary Blood - Venous No growth after 24 hours. 10/18/20 20:20 Blood Culture - Preliminary Blood - Venous No growth after 24 hours. Assessment and Plan (1) NSTEMI (non-ST elevated myocardial infarction): Status: Acute (2) Acute and chronic respiratory failure with hypoxia: Status: Acute (3) UTI (urinary tract infection): Status: Acute (4) CHF exacerbation: Status: Acute (5) ELICIA (acute kidney injury): Status: Acute (6) Severe sepsis: Status: Acute Assessment and Plan: 70-year-old female with past medical history COPD and CHF O2 dependent on 4-5 L at baseline found to be obtunded at assisted living after having her O2 off # acute on chronic hypoxic respiratory failure - found obtunded , likely due to hypoxia, most likely after losing her nasal ca nnula while sleeping, and due to CHF, no COPD exacerbation ? At present alert and oriented x3 initially had some hearing loss, but was going on for last few days, now improved ?? head CT negative, continue home oxygen,[place] 96% # Severe sepsis due to UTI ? Patient presented with hypotension, tachycardia, tachypnea and hypoxia, noted to have lactic acidosis, positive urinalysis ? Two sets of blood cultures pend,cont. IV ceftriaxone day 2, s/p s/p IV fluids ? WBC normalized, urine and blood cultures pending, ? # acute CHF exacerbation (need echo to assist systolic or diastolic dysfunction) - had orthopnea, lower extremity edema, elevated BNP, as well as some interstitial markings on chest x-ray, status post IV Lasix 40 b.i.d. currently appear euvolemic , On Lasix 40 mg by mouth daily at home, will resume Lasix from tomorrow patient appears euvolemic - continue strict I&O, daily weight, low-sodium diet - follow echocardiogram # hypokalemia potassium 3.1 likely due to diuretics will replace and follow # NSTEMI - most likely type 2 in the setting of hypoxia, troponin initial 6805, repeat 7061, patient denies chest pain, no prior history of coronary artery disease - continue IV heparin times 48 ending tonight,on aspirin, statin ,add metoprolol,follow echocardiogram, case discussed with Dr. Yadav from Cardiology he feels CT likely due to hypoxia Further ischemic workup as per Cardiology # ELICIA - creatinine normalized, possibly secondary to hypoxic injury as well as CHF, was on lisinopril, currently on hold # history of COPD - does not appear to have any exacerbation, denies any increased cough or sputum production, continue home inhalers and prednisone # hypothyroidism - continue levothyroxine DVT prophylaxis:[facility]pairn [facility] Quality Stroke Does the patient have a stroke diagnosis?: No VTE Prior VTE?: No VTE Risk Level:: Medical - moderate - high VTE Device Contraindication: Treatment Not Indicated VTE Drug Contraindication: N/A - Med Ordered
--- NOTE | 2020-10-20 11:10 | PM.PNCARD ---
Subjective Subjective Date of Service: 10/20/20 Interval history: Feels ok. No cardiac symptoms. Review of Systems Review of Systems Yes all other systems are reviewed and are negative Cardiovascular: Reports as per HPI, Reports no additional cardiovascular complaints, Denies acrocyanosis, Denies cool extremities, Denies painful fingertips, Denies chest pain, Denies chest pain at rest, Denies diaphoresis, Denies syncope, Denies irregular heart rhythm, Denies claudication, Denies leg edema, Denies lightheadedness, Denies palpitations and Denies dyspnea Respiratory: Denies dyspnea Denies syncope Endocrine: Denies palpitations Physical Exam Vital Signs: Last Vital Signs Temp 97.6 F 10/20/20 11:03 Pulse 72 10/20/20 11:03 Resp 19 10/20/20 11:03 BP 140/77 H 10/20/20 11:03 Pulse Ox 93 10/20/20 11:03 Oxygen Flow Rate 5 10/18/20 19:35 Body Mass Index 34.1 Const General: cooperative and no acute distress Neck Neck: Yes normal visual inspection Chest Chest palpation & inspection: normal inspection of the chest Resp Auscultation: wheezes Cardio Jugular venous distension: no JVD Palpation: normal PMI Heart sounds: S1 normal heart sound present, S2 normal heart sound present, no gallops, no murmurs and no rubs GI Palpation (GI): Soft to palpation Skin General skin exam: no rashes or lesions noted Neuro Cranial nerves: Yes Other cranial nerve findings present Extrem General: Yes no clubbing, cyanosis or edema Psych Mental Status: other Results Labs and Meds Result diagrams: 10/19/20 06:44 10/20/20 07:45 Lab results: Laboratory Results - last 24 hr 10/19/20 10/19/20 10/19/20 14:27 16:59 17:00 PTT (Heparin Protocol) 50.0 L D Sodium Potassium Chloride Carbon Dioxide Anion Gap BUN Creatinine Estim Creat Clear Calc Estimated GFR POC Glucose 264 H 253 H Random Glucose Calcium 10/19/20 10/20/20 10/20/20 20:17 00:43 07:20 PTT (Heparin Protocol) 99.6 H D Sodium Potassium Chloride Carbon Dioxide Anion Gap BUN Creatinine Estim Creat Clear Calc Estimated GFR POC Glucose 108 118 H Random Glucose Calcium 10/20/20 10/20/20 07:45 07:45 PTT (Heparin Protocol) 45.6 L D Sodium 144 Potassium 3.1 L Chloride 101 Carbon Dioxide 31 H Anion Gap 15 BUN 14 Creatinine 0.93 Estim Creat Clear Calc 53.0 Estimated GFR 59 POC Glucose Random Glucose 117 H Calcium 8.7 D Progress Note: A&P Assessment and plan (1) NSTEMI (non-ST elevated myocardial infarction): Status: Acute Assessment and Plan: High sensitive troponins are markedly elevated peaking at 7061. Cardiac BNP is 232. Hypokalemia noted. Chest x-ray reported to have prominent interstitial markings that could be associated with mild edema or small airway disease. Overall, hypoxia could have led to non ST-elevation myocardial infarction. She could also have underlying coronary disease. Continue IV heparin for 48 hours. Aspirin, statins. Echocardiogram Wednesday. Then need to decide between stress testing versus cardiac catheterization. Fall Risk Details Current Medications: Current Medications Generic Name Dose Route Start Last Admin Trade Name Freq PRN Reason Stop Dose Admin Acetaminophen 650 mg 10/18/20 23:21 Acetaminophen 325 Mg Tablet PO Q6H PRN Pain, Mild (Pain Scale 1-3) Albuterol Sulfate 0.083 mg 10/19/20 09:00 Albuterol Sulfate (0.083%) 2.5 Mg/3 Ml Vial.Neb INHALE 6XD PRN Wheezing Albuterol Sulfate 1 puff 10/19/20 06:30 Albuterol Sulfate 90 Mcg 8 Gm Inhaler INHALE Q4H PRN Wheezing Albuterol/Ipratropium 3 ml 10/19/20 08:00 10/20/20 10:50 Albuterol/Iprat 2.5/0.5mg 3 Ml Ampul.Neb INHALE 3 ml RQ4H WHILE AWAKE SIDRA Administration Albuterol/Ipratropium 3 ml 10/19/20 04:14 10/19/20 04:34 Albuterol/Iprat 2.5/0.5mg 3 Ml Ampul.Neb INHALE 3 ml RQ4H PRN Administration Shortness of Breath/Wheezing Aspirin 81 mg 10/19/20 09:00 10/20/20 08:29 Aspirin 81 Mg Tab.Chew PO 81 mg DAILY [facility] Administration Atorvastatin Calcium 80 mg 10/19/20 21:00 10/19/20 21:29 Atorvastatin Calcium 80 Mg Tablet PO 80 mg BEDTIME [facility] Administration Azithromycin 250 mg 10/21/20 09:00 Azithromycin 250 Mg Tablet PO MoWeFr@0900 [facility] Dextrose 25 gm 10/19/20 06:45 Dextrose 50 % 25 Gm/50 Ml Vial IVPUSH Q15M PRN per Hypoglycemia Standing Ord. Protocol Docusate Sodium 100 mg 10/18/20 23:21 Docusate Sodium 100 Mg Capsule PO DAILY PRN Constipation Fluoxetine HCl 20 mg 10/19/20 09:00 10/20/20 08:31 Fluoxetine Hcl 20 Mg Capsule PO 20 mg DAILY [facility] Administration Fluticasone/Vilanterol 1 puff 10/19/20 08:00 10/20/20 07:35 Fluticasone/Vilanterol 100/25 Blst.W.Dev INHALE 1 puff RDAILY [facility] Administration Glucose 15 gm 10/19/20 06:45 Glucose Gel 15 Gm Gel..Gram. PO Q15M PRN per Hypoglycemia Standing Ord. Protocol Heparin Sodium (Porcine) 3,400 unit 10/18/20 23:28 10/20/20 08:27 Heparin Sodium,Porcine 5,000 Unit/Ml Vial 40 unit/kg (3400 unit) 3,400 unit IVPUSH Administration PROTOCOL BOLUS PRN 40 unit/kg - Heparin Protocol Protocol Heparin Sodium (Porcine) 6,800 unit 10/18/20 23:28 Heparin Sodium,Porcine 5,000 Unit/Ml Vial 80 unit/kg (6800 unit) IVPUSH PROTOCOL BOLUS PRN 80 unit/kg - Heparin Protocol Protocol Heparin Sodium/Sodium Chloride 25,000 unit in 250 mls @ 0 mls/hr 10/18/20 23:30 10/20/20 08:26 IVCONT 9.75 units/kg/hr .Q0M [facility] 8.3 mls/hr Titration Protocol Per Protocol Ceftriaxone Sodium 1 gm/ 50 mls @ 100 mls/hr 10/19/20 22:00 10/19/20 22:38 Sodium Chloride IV Infused Q24H [facility] Infusion Insulin Human Lispro 0 unit 10/19/20 07:30 10/20/20 07:52 Insulin Lispro 100 Unit/Ml 3 Ml Vial SUBCUT Not Given QIDACHS [facility] Protocol Levothyroxine Sodium 75 mcg 10/19/20 09:00 10/20/20 08:29 Levothyroxine Sodium 75 Mcg Tablet PO 75 mcg DAILY [facility] Administration Lorazepam 0.5 mg 10/19/20 06:29 10/19/20 21:33 Lorazepam 0.5 Mg Tablet PO 0.5 mg TID PRN Administration Anxiety Melatonin 3 mg 10/19/20 21:00 10/19/20 21:29 Melatonin 3 Mg Tablet PO 3 mg BEDTIME [facility] Administration Metoprolol Tartrate 12.5 mg 10/20/20 10:45 Metoprolol Tartrate 12.5 Mg Halftab PO BID [facility] Protocol Montelukast Sodium 10 mg 10/19/20 21:00 10/19/20 21:29 Montelukast Sodium 10 Mg Tablet PO 10 mg BEDTIME [facility] Administration Morphine Sulfate 7.5 mg 10/19/20 23:15 10/20/20 08:31 Morphine Sulfate Immed Release 15 Mg Tablet PO 7.5 mg BID [facility] Administration Ondansetron HCl 4 mg 10/18/20 23:21 Ondansetron Hcl 4 Mg/2 Ml Vial IVPUSH Q8H PRN Nausea and Vomiting Prednisone 10 mg 10/19/20 09:00 10/20/20 08:29 Prednisone 10 Mg Tablet PO 10 mg DAILY [facility] Administration Pregabalin 75 mg 10/19/20 09:00 10/20/20 08:29 Pregabalin 75 Mg Capsule PO 75 mg BID [facility] Administration Sodium Chloride 3 ml 10/19/20 00:00 10/20/20 08:31 0.9 % Sodium Chloride Flush 3 Ml Syringe IVFLUSH 3 ml QSHIFT [facility] Administration Trazodone HCl 100 mg 10/19/20 21:00 10/19/20 21:29 Trazodone Hcl 100 Mg Tablet PO 100 mg BEDTIME [facility] Administration Vitamin D 50 mcg 10/19/20 09:00 10/20/20 08:29 Cholecalciferol (Vitamin D3) 25 Mcg Tablet PO 50 mcg DAILY [facility] Administration Time Spent With Patient Time: Total time spent is greater than 50% in coordination of care (as documented) at patient's floor/unit and/or counseling patient: Time with patient: less than 15 minutes Progress Note: Quality Stroke Does the patient have a stroke diagnosis?: No Procedures Date of Service Date of Service: 10/20/20
[2020-10-20] MEDS: Metoprolol Tartrate 12.5 MG HALFTAB PO ×2 (11:14→20:02)
[2020-10-20] MEDS: Potassium Chloride ER 20 MEQ TAB.ER.PRT 40 MEQ PO ×2 (11:14)
[2020-10-20 11:23] LABS: Glucose, Whole Blood 189 mg/dL (60-115)
[2020-10-20] MEDS: Insulin Lispro 100 UNIT/ML 3 ML VIAL SUBCUT ×3 (11:39→20:00)
[2020-10-20 15:00] LABS: PTT Heparin Drip 66.6 SEC (53-77.9)
[2020-10-20 15:53] LABS: Glucose, Whole Blood 233 mg/dL (60-115)
[2020-10-20 19:49] LABS: Glucose, Whole Blood 241 mg/dL (60-115)
[2020-10-20] MEDS: Melatonin 3 MG TABLET PO (19:59)
[2020-10-20] MEDS: traZODone HCL 100 MG TABLET PO (19:59)
[2020-10-20] MEDS: Atorvastatin Calcium 80 MG TABLET PO (19:59)
[2020-10-20] MEDS: Montelukast Sodium 10 MG TABLET PO (20:00)
[2020-10-20] MEDS: cefTRIAXone sodium 1 GM in 0.9 % Sodium Chloride 50 ML IV (22:39)
[2020-10-21] VITALS (15 sets, daily range): BP systolic 115–159; BP diastolic 60–79; PULSE 57–87; RESP 18–20; TEMP 36.2–36.8; O2SAT 92–98; BMI 34.2
[2020-10-21] MEDS: Heparin Sodium,Porcine/1/2NS 25,000 UNIT/250 ML IV.SOLN 8.3 UNIT IVCONT (01:29)
[2020-10-21 06:52] LABS: PTT Heparin Drip 63.7 SEC (53-77.9)
[2020-10-21 07:04] LABS: Glucose, Whole Blood 123 mg/dL (60-115)
[2020-10-21 07:32] LABS: Anion Gap 12 (12-20); Blood Urea Nitrogen 10 mg/dL (9-16); Calcium 9.2 mg/dL (8.4-10.2); Carbon Dioxide 31 mmol/L (22-29); Chloride 104 mmol/L (96-108); Creatinine Clr Calc Pharmacy 58.7; Estimated Glomerular Filt Rate > 60; Glucose Random 120 mg/dL (60-115); Potassium 4.6 mmol/L (3.3-5.1); Sodium 142 mmol/L (135-145)
[2020-10-21] MEDS: Fluticasone/Vilanterol 100/25 BLST.W.DEV 1 PUFF INHALE (07:53)
[2020-10-21] MEDS: Albuterol/Iprat 2.5/0.5MG 3 ML AMPUL.NEB INHALE ×4 (07:53→19:09)
[2020-10-21] MEDS: 0.9 % Sodium Chloride Flush 3 ML SYRINGE IVFLUSH ×3 (09:41→21:38)
[2020-10-21] MEDS: Morphine Sulfate Immed Release 15 MG TABLET 7.5 MG PO ×2 (09:41→21:26)
[2020-10-21] MEDS: Levothyroxine Sodium 75 MCG TABLET PO (09:41)
[2020-10-21] MEDS: Metoprolol Tartrate 12.5 MG HALFTAB PO ×2 (09:41→21:30)
[2020-10-21] MEDS: Cholecalciferol (Vitamin D3) 25 MCG TABLET 50 MCG PO (09:43)
[2020-10-21] MEDS: Pregabalin 75 MG CAPSULE PO ×2 (09:43→21:27)
[2020-10-21] MEDS: FLUoxetine HCl 20 MG CAPSULE PO (09:43)
[2020-10-21] MEDS: Azithromycin 250 MG TABLET PO (09:43)
[2020-10-21] MEDS: Aspirin 81 MG TAB.CHEW PO (09:43)
[2020-10-21] MEDS: predniSONE 10 MG TABLET PO (09:43)
[2020-10-21] MEDS: Furosemide 40 MG TABLET PO (09:45)
--- NOTE | 2020-10-21 10:00 | CA_ITS ---
Transthoracic Echocardiogram Patient (Last, First, Middle): Britni Lane, Gender: Female Date of : 1950 Age: 70 Procedure Date: 10/21/2020 Procedure Type: Transthoracic Echocardiogram [place] [facility] [place]: 154.94 cm Weight: 81.65 kg BSA: 1.81 m2 Heart Rate: bpm BP: 145 / 74 mmHg Stepdown Nurse: Referring MD: Cony Arreola MD Symptoms: CHF Study Quality: Fair ECG Rhythm: Sinus Conclusions: - Normal left ventricular size and systolic function. - There is no evidence of regional wall motion abnormalities. - E/E prime ratio is between 8 and 15 consistent with indeterminate filling pressures. - Normal right ventricular cavity size and systolic function. - Mild pulmonary hypertension is present. Findings Left Ventricle Normal left ventricular size and systolic function. There is mildly increased left ventricular wall thickness. The visually estimated ejection fraction is between 55-60%. There is no evidence of regional wall motion abnormalities. Abnormal diastolic function is noted. Spectral Doppler is indicative of an impaired relaxation filling pattern. E/E prime ratio is between 8 and 15 consistent with indeterminate filling pressures. Right Ventricle Normal right ventricular cavity size and systolic function. Atria The left atrium is normal in size. The right atrium is mildly dilated. Aortic Valve Normal aortic valve structure and function. There is no aortic valve stenosis. There is no aortic valve regurgitation. Mitral Valve Normal mitral valve structure and function. There is no mitral valve regurgitation. There is no mitral valve stenosis. Pulmonic Valve The pulmonic valve is likely normal. Tricuspid Valve Normal tricuspid valve structure and function. There is trace tricuspid valve regurgitation. Normal right atrial pressure. Mild pulmonary hypertension is present. Great Vessels There is mild dilatation of the ascending aorta. The visualized portions of the pulmonary artery and branches are normal. Venous The inferior vena cava is normal in size and collapses greater than 50% with inspiration. Pericardium/Pleural Prominent epicardial adipose tissue noted. There is no evidence of pericardial effusion. Measurements 2D Linear Measurements IVSd: 1.11 0.6-0.9/0.6-1.0 cm LVIDd: 4.41 3.9-5.3/4.2-5.9 cm LVIDd Index: 2.44 2.4-3.2/2.2-3.1 cm/m2 LVIDs: 3.05 2.0-3.6 cm LVPWd: 1.14 0.7-1.1 cm Ao Root: 3.00 2.1-3.5 cm LA Diam: 3.90 2.7-3.8/3.0-4.0 cm LAIDs Index: 2.15 1.5-2.3 cm/m2 LV Mass: 218.03 67-162/88-224 g LV Mass Index: 120.46 43-95/49-115 g/m2 LVOT Diam: 2.10 3.0+(-)1.3 cm Mitral Valve MV Pk E: 1.00 MV PK A: 1.09 MV Decel Time: 228.00 E/A: 0.90 E'Lateral: 8.92 E'Medial: 6.42 E/E' Med: 15.60 E/E' Lat: 11.20 PHT: 67.00 MVA PHT: 3.28 Decel [place]: 4.40 Aortic Valve AoV Pk Ty: 1.82 AoV Mn Ty: 1.26 AoV VTI: 0.45 AoV Pk Grad: 13.00 Aov Mn Grad: 7.00 LAISHA Cont.VTI: 1.70 LVOT LVOT Pk Ty: 0.95 LVOT Mn Ty: 0.70 LVOT VTI: 0.22 LVOT Pk Grad: 4.00 LVOT Mn Grad: 2.00 LVOT Diam: 2.10 LVOT Area: 3.46 Diastolic Function MV Pk E: 1.00 MV Pk A: 1.09 E/A: 0.90 E'Medial: 6.42 E/E' Med: 15.60 E' Laterial: 8.92 E/E' Lat: 11.20 Tricuspid Valve TR Pk Ty: 3.17 TR Pk Grad: 40.00 RA Press: 3.00 RVSP: 43.00 Great Vessels Aorta Ao Root-2D: 3.00 2.0-3.7 cm Ao Asc: 3.60 2.1-3.4 cm Pulmonary Valve PV Pk Ty: 0.61 Peak PV Grad: 1.00 Updated in Other Vendor System with Status of Final Ben Gutierrez MD electronically signed on 10/21/2020 12:34:19 PM with status of Final
[2020-10-21 11:01] LABS: Glucose, Whole Blood 151 mg/dL (60-115)
--- NOTE | 2020-10-21 12:50 | P.CDIC_ITS ---
CDI Concurrent Query Documentation Clarification: PHYSICIAN'S DOCUMENTATION REQUEST Date of Query: 10/21/20 1250 Patient Name: Britni Lane Admit Date: 10/18/20 Dear Doctor, A review of the medical record indicates additional documentation may be needed. Please review below and update the documentation accordingly. Clinical Indicators: The diagnosis of [Diagnosis] was documented on [date] but is not consistently noted in subsequent documentation. Risk Factors/Clinical Indicators/Treatments CXR: mild edema vs small airway process ED Impression: Possible Pneumonia Please clarify the following: * Pneumonia was present on admission and is now resolved * Pneumonia was ruled out * Pneumonia is still a likely, suspected, probable diagnosis * Other ? please specify * Unable to determine Use of terms such as suspected, likely, concern for, or probable (associated with a specific diagnosis that is being evaluated, monitored, or treated as if it exists) are acceptable and can be coded in the inpatient setting, when documented at the time of discharge. Thank you, Krystal Dahl RN Extension: [phone] Please use your independent medical judgment in providing your response. THIS QUERY IS PART OF THE PERMANENT MEDICAL RECORD Provider Response: Other (not pneumonia) Other Diagnosis: not pneumonia
[2020-10-21] MEDS: Insulin Lispro 100 UNIT/ML 3 ML VIAL SUBCUT ×3 (13:01→21:29)
--- NOTE | 2020-10-21 13:13 | MHC.CM.PN ---
Per ROUNDS discussion, Patient is not yet medically cleared for dc (SEPTIC/UTI/IV CEFTRIAXONE).Returning to [facility] is the goal and CM will follows for possible need to adjust the dc plan.
--- NOTE | 2020-10-21 13:34 | PM.PNCARD ---
Subjective Subjective Date of Service: 10/21/20 Principal diagnosis: Hypoxic respiratory failure, NSTEMI Interval history: Cardiology follow up for NSTEMI. Seen at 1115. Today she is observed resting quietly in bed with family member at bedside. She states her breathing is back to her baseline. She is wearing O2 at 5 liters with nasal cannula. No cough, PND, edema. No chest pains, heart palpitations. Slept well. Reports that she is a DNR/ DNI and does not want any invasive testing. Review of Systems Review of Systems as above Physical Exam Vital Signs: Last Vital Signs Temp 97.3 F 10/21/20 11:13 Pulse 77 10/21/20 11:48 Resp 18 10/21/20 11:13 BP 139/74 10/21/20 11:13 Pulse Ox 94 10/21/20 13:06 Oxygen Flow Rate 5 10/18/20 19:35 Body Mass Index 34.2 Const General: cooperative, no acute distress, alert and awake Orientation/consciousness: patient oriented x3 Neck Neck: Yes normal visual inspection and Yes no JVD Resp Other: Lung sounds diminished, some scattered rales in lower lobes Effort & Inspection: normal respiratory effort, able to speak in complete sentences and not labored Auscultation: no rhonchi and no wheezes Cardio Palpation: normal PMI Rate: regular rate Rhythm: regular rhythm Heart sounds: S1 normal heart sound present and S2 normal heart sound present Peripheral pulses: Peripheral pulses 2+ throughout GI Inspection: Yes normal to inspection Neuro General: patient oriented x3 Extrem General: Yes normal to inspection and No edema Results Labs and Meds Result diagrams: 10/19/20 06:44 10/21/20 06:27 Lab results: Laboratory Results - last 24 hr 10/20/20 10/20/20 10/20/20 14:33 15:45 19:41 PTT (Heparin Protocol) 66.6 D Sodium Potassium Chloride Carbon Dioxide Anion Gap BUN Creatinine Estim Creat Clear Calc Estimated GFR POC Glucose 233 H 241 H Random Glucose Calcium 10/20/20 10/21/20 10/21/20 21:19 06:27 06:27 PTT (Heparin Protocol) 56.0 63.7 Sodium 142 Potassium 4.6 D Chloride 104 Carbon Dioxide 31 H Anion Gap 12 BUN 10 Creatinine 0.84 Estim Creat Clear Calc 58.7 Estimated GFR > 60 POC Glucose Random Glucose 120 H Calcium 9.2 10/21/20 10/21/20 06:58 10:57 PTT (Heparin Protocol) Sodium Potassium Chloride Carbon Dioxide Anion Gap BUN Creatinine Estim Creat Clear Calc Estimated GFR POC Glucose 123 H 151 H Random Glucose Calcium Progress Note: A&P Assessment and plan (1) NSTEMI (non-ST elevated myocardial infarction): Status: Acute Assessment and Plan: Admit with hypoxic resp failure. Trop elevated to 7061. No report of CP. EKG SR with nonspecific ST abnormalities. No known Hx of CAD. Treated for NSTEMI with heparin drip for 48 hrs. Echo completed this am, report is pending. Breathing is back to her baseline. Discussed NSTEMI, possibility of CAD and recommendation for further evaluation. She reports being a DNR/ DNI and does not want to have stress test or cardiac cath. She wants only medical management for heart condition. Will continue on aspirin 81 mg daily, Continue statin. She is tolerating low dose Metoprolol without wheezing or increased sob. Continue low dose Metoprolol. Can restart home low dose Lisinopril. If echo shows no significant abnormality then she can be discharged from a cardiology perpsective. If echo does have significant findings, addendum will be added. She can follow up in our office as outpt if she would like. (2) Acute and chronic respiratory failure with hypoxia: Status: Acute Assessment and Plan: hx of COPD with chronic hypoxia, O2 dependant 5liters continually. Fall Risk Details Current Medications: Current Medications Generic Name Dose Route Start Last Admin Trade Name Freq PRN Reason Stop Dose Admin Acetaminophen 650 mg 10/18/20 23:21 Acetaminophen 325 Mg Tablet PO Q6H PRN Pain, Mild (Pain Scale 1-3) Albuterol Sulfate 0.083 mg 10/19/20 09:00 Albuterol Sulfate (0.083%) 2.5 Mg/3 Ml Vial.Neb INHALE 6XD PRN Wheezing Albuterol Sulfate 1 puff 10/19/20 06:30 Albuterol Sulfate 90 Mcg 8 Gm Inhaler INHALE Q4H PRN Wheezing Albuterol/Ipratropium 3 ml 10/19/20 08:00 10/21/20 11:46 Albuterol/Iprat 2.5/0.5mg 3 Ml Ampul.Neb INHALE 3 ml RQ4H WHILE AWAKE SIDRA Administration Albuterol/Ipratropium 3 ml 10/19/20 04:14 10/19/20 04:34 Albuterol/Iprat 2.5/0.5mg 3 Ml Ampul.Neb INHALE 3 ml RQ4H PRN Administration Shortness of Breath/Wheezing Aspirin 81 mg 10/19/20 09:00 10/21/20 09:43 Aspirin 81 Mg Tab.Chew PO 81 mg DAILY SIDRA Administration Atorvastatin Calcium 80 mg 10/19/20 21:00 10/20/20 19:59 Atorvastatin Calcium 80 Mg Tablet PO 80 mg BEDTIME SIDRA Administration Azithromycin 250 mg 10/21/20 09:00 10/21/20 09:43 Azithromycin 250 Mg Tablet PO 250 mg [id number]@0900 SIDRA Administration Dextrose 25 gm 10/19/20 06:45 Dextrose 50 % 25 Gm/50 Ml Vial IVPUSH Q15M PRN per Hypoglycemia Standing Ord. Protocol Docusate Sodium 100 mg 10/18/20 23:21 Docusate Sodium 100 Mg Capsule PO DAILY PRN Constipation Fluoxetine HCl 20 mg 10/19/20 09:00 10/21/20 09:43 Fluoxetine Hcl 20 Mg Capsule PO 20 mg DAILY SIDRA Administration Fluticasone/Vilanterol 1 puff 10/19/20 08:00 10/21/20 07:53 Fluticasone/Vilanterol 100/25 Blst.W.Dev INHALE 1 puff RDAILY SIDRA Administration Furosemide 40 mg 10/21/20 09:30 10/21/20 09:45 Furosemide 40 Mg Tablet PO 40 mg DAILY SIDRA Administration Protocol Glucose 15 gm 10/19/20 06:45 Glucose Gel 15 Gm Gel..Gram. PO Q15M PRN per Hypoglycemia Standing Ord. Protocol Ceftriaxone Sodium 1 gm/ 50 mls @ 100 mls/hr 10/19/20 22:00 10/20/20 23:53 Sodium Chloride IV Infused Q24H SIDRA Infusion Insulin Human Lispro 0 unit 10/19/20 07:30 10/21/20 13:01 Insulin Lispro 100 Unit/Ml 3 Ml Vial SUBCUT 2 unit QIDACHS SIDRA Administration Protocol Levothyroxine Sodium 75 mcg 10/19/20 09:00 10/21/20 09:41 Levothyroxine Sodium 75 Mcg Tablet PO 75 mcg DAILY SIDRA Administration Lorazepam 0.5 mg 10/19/20 06:29 10/19/20 21:33 Lorazepam 0.5 Mg Tablet PO 0.5 mg TID PRN Administration Anxiety Melatonin 3 mg 10/19/20 21:00 10/20/20 19:59 Melatonin 3 Mg Tablet PO 3 mg BEDTIME SIDRA Administration Metoprolol Tartrate 12.5 mg 10/20/20 10:45 10/21/20 09:41 Metoprolol Tartrate 12.5 Mg Halftab PO 12.5 mg BID SIDRA Administration Protocol Montelukast Sodium 10 mg 10/19/20 21:00 10/20/20 20:00 Montelukast Sodium 10 Mg Tablet PO 10 mg BEDTIME SIDRA Administration Morphine Sulfate 7.5 mg 10/19/20 23:15 10/21/20 09:41 Morphine Sulfate Immed Release 15 Mg Tablet PO 7.5 mg BID SIDRA Administration Ondansetron HCl 4 mg 10/18/20 23:21 Ondansetron Hcl 4 Mg/2 Ml Vial IVPUSH Q8H PRN Nausea and Vomiting Prednisone 10 mg 10/19/20 09:00 10/21/20 09:43 Prednisone 10 Mg Tablet PO 10 mg DAILY SIDRA Administration Pregabalin 75 mg 10/19/20 09:00 10/21/20 09:43 Pregabalin 75 Mg Capsule PO 75 mg BID SIDRA Administration Sodium Chloride 3 ml 10/19/20 00:00 10/21/20 09:41 0.9 % Sodium Chloride Flush 3 Ml Syringe IVFLUSH 3 ml QSHIFT SIDRA Administration Trazodone HCl 100 mg 10/19/20 21:00 10/20/20 19:59 Trazodone Hcl 100 Mg Tablet PO 100 mg BEDTIME SIDRA Administration Vitamin D 50 mcg 10/19/20 09:00 10/21/20 09:43 Cholecalciferol (Vitamin D3) 25 Mcg Tablet PO 50 mcg DAILY SIDRA Administration Time Spent With Patient Time: Total time spent is greater than 50% in coordination of care (as documented) at patient's floor/unit and/or counseling patient: Time with patient: 15 - 24 minutes Progress Note: Quality Stroke Does the patient have a stroke diagnosis?: No Procedures Date of Service Date of Service: 10/21/20
--- NOTE | 2020-10-21 15:04 | P.PNIM_ITS ---
Subjective Subjective Date of Service: 10/21/20 Interval History: Denies chest pain Chronically on 5L NC. TTE today. Review of Systems Review of Systems: Yes all other systems are reviewed and are negative Physical Exam Vital Signs: Vital Signs: Last Vital Signs Temp 97.3 F 10/21/20 11:13 Pulse 77 10/21/20 11:48 Resp 18 10/21/20 11:13 BP 139/74 10/21/20 11:13 Pulse Ox 94 10/21/20 13:06 Oxygen Flow Rate 5 10/18/20 19:35 Body Mass Index 34.2 Gen: in no acute distress HEENT: sclera anicteric, moist mucus membranes Neck: supple Lungs: diminished bilaterally Heart: regular rate and rhythm, no murmurs Abd: soft, non-tender, non-distended Ext: no edema Skin: warm/well-perfused Neuro: alert and oriented x3, no focal findings Psych: appropriate affect Objective Data Active Medications Acetaminophen (Acetaminophen 325 Mg Tablet) 650 mg PO Q6H PRN PRN Reason: Pain, Mild (Pain Scale 1-3) Albuterol Sulfate (Albuterol Sulfate (0.083%) 2.5 Mg/3 Ml Vial.Neb) 0.083 mg INHALE 6XD PRN PRN Reason: Wheezing Albuterol Sulfate (Albuterol Sulfate 90 Mcg 8 Gm Inhaler) 1 puff INHALE Q4H PRN PRN Reason: Wheezing Albuterol/Ipratropium (Albuterol/Iprat 2.5/0.5mg 3 Ml Ampul.Neb) 3 ml INHALE RQ4H WHILE AWAKE [facility] Last Admin: 10/21/20 11:46 Dose: 3 ml Documented by: JONATHAN Albuterol/Ipratropium (Albuterol/Iprat 2.5/0.5mg 3 Ml Ampul.Neb) 3 ml INHALE RQ4H PRN PRN Reason: Shortness of Breath/Wheezing Last Admin: 10/19/20 04:34 Dose: 3 ml Documented by: CLAUDY Aspirin (Aspirin 81 Mg Tab.Chew) 81 mg PO DAILY [facility] Last Admin: 10/21/20 09:43 Dose: 81 mg Documented by: WILNER Atorvastatin Calcium (Atorvastatin Calcium 80 Mg Tablet) 80 mg PO BEDTIME [facility] Last Admin: 10/20/20 19:59 Dose: 80 mg Documented by: YESSY Azithromycin (Azithromycin 250 Mg Tablet) 250 mg PO MoWeFr@0900 [facility] Last Admin: 10/21/20 09:43 Dose: 250 mg Documented by: WILNER Dextrose (Dextrose 50 % 25 Gm/50 Ml Vial) 25 gm IVPUSH Q15M PRN; Protocol PRN Reason: per Hypoglycemia Standing Ord. Docusate Sodium (Docusate Sodium 100 Mg Capsule) 100 mg PO DAILY PRN PRN Reason: Constipation Fluoxetine HCl (Fluoxetine Hcl 20 Mg Capsule) 20 mg PO DAILY [facility] Last Admin: 10/21/20 09:43 Dose: 20 mg Documented by: WILNER Fluticasone/Vilanterol (Fluticasone/Vilanterol 100/25 Blst.W.Dev) 1 puff INHALE RDAILY [facility] Last Admin: 10/21/20 07:53 Dose: 1 puff Documented by: JONATHAN Furosemide (Furosemide 40 Mg Tablet) 40 mg PO DAILY [facility]; Protocol Last Admin: 10/21/20 09:45 Dose: 40 mg Documented by: WILNER Glucose (Glucose Gel 15 Gm Gel..Gram.) 15 gm PO Q15M PRN; Protocol PRN Reason: per Hypoglycemia Standing Ord. Ceftriaxone Sodium 1 gm/ (Sodium Chloride) 50 mls @ 100 mls/hr IV Q24H [facility] Last Infusion: 10/20/20 23:53 Dose: 0 mls/hr Documented by: YESSY Insulin Human Lispro (Insulin Lispro 100 Unit/Ml 3 Ml Vial) 0 unit SUBCUT QIDACHS [facility]; Protocol Last Admin: 10/21/20 13:01 Dose: 2 unit Documented by: WILNER Levothyroxine Sodium (Levothyroxine Sodium 75 Mcg Tablet) 75 mcg PO DAILY [facility] Last Admin: 10/21/20 09:41 Dose: 75 mcg Documented by: WILNER Lorazepam (Lorazepam 0.5 Mg Tablet) 0.5 mg PO TID PRN PRN Reason: Anxiety Last Admin: 10/19/20 21:33 Dose: 0.5 mg Documented by: YESSY Melatonin (Melatonin 3 Mg Tablet) 3 mg PO BEDTIME [facility] Last Admin: 10/20/20 19:59 Dose: 3 mg Documented by: YESSY Metoprolol Tartrate (Metoprolol Tartrate 12.5 Mg Halftab) 12.5 mg PO BID [facility]; Protocol Last Admin: 10/21/20 09:41 Dose: 12.5 mg Documented by: WILNER Montelukast Sodium (Montelukast Sodium 10 Mg Tablet) 10 mg PO BEDTIME [facility] Last Admin: 10/20/20 20:00 Dose: 10 mg Documented by: YESSY Morphine Sulfate (Morphine Sulfate Immed Release 15 Mg Tablet) 7.5 mg PO BID [facility] Last Admin: 10/21/20 09:41 Dose: 7.5 mg Documented by: WILNER Ondansetron HCl (Ondansetron Hcl 4 Mg/2 Ml Vial) 4 mg IVPUSH Q8H PRN PRN Reason: Nausea and Vomiting Prednisone (Prednisone 10 Mg Tablet) 10 mg PO DAILY [facility] Last Admin: 10/21/20 09:43 Dose: 10 mg Documented by: WILNER Pregabalin (Pregabalin 75 Mg Capsule) 75 mg PO BID [facility] Last Admin: 10/21/20 09:43 Dose: 75 mg Documented by: WILNER Sodium Chloride (0.9 % Sodium Chloride Flush 3 Ml Syringe) 3 ml IVFLUSH QSHIFT [facility] Last Admin: 10/21/20 09:41 Dose: 3 ml Documented by: WILNER Trazodone HCl (Trazodone Hcl 100 Mg Tablet) 100 mg PO BEDTIME [facility] Last Admin: 10/20/20 19:59 Dose: 100 mg Documented by: YESSY Vitamin D (Cholecalciferol (Vitamin D3) 25 Mcg Tablet) 50 mcg PO DAILY [facility] Last Admin: 10/21/20 09:43 Dose: 50 mcg Documented by: WILNER Labs CBC & Chem 7: 10/19/20 06:44 10/21/20 06:27 Labs: Laboratory Results - last 24 hr 10/20/20 10/20/20 10/20/20 15:45 19:41 21:19 PTT (Heparin Protocol) 56.0 Anion Gap Estim Creat Clear Calc Estimated GFR POC Glucose 233 H 241 H Random Glucose Calcium 10/21/20 10/21/20 10/21/20 06:27 06:27 06:58 PTT (Heparin Protocol) 63.7 Anion Gap 12 Estim Creat Clear Calc 58.7 Estimated GFR > 60 POC Glucose 123 H Random Glucose 120 H Calcium 9.2 10/21/20 10:57 PTT (Heparin Protocol) Anion Gap Estim Creat Clear Calc Estimated GFR POC Glucose 151 H Random Glucose Calcium Microbiology Microbiology Results: Microbiology 10/18/20 20:20 Blood Culture - Preliminary Blood - Venous No growth after 48 hours. 10/18/20 20:20 Blood Culture - Preliminary Blood - Venous No growth after 48 hours. 10/19/20 Unknown Urine Culture - Final Urine clean catch - Urine pierre top Assessment and Plan (1) NSTEMI (non-ST elevated myocardial infarction): Status: Acute (2) Acute and chronic respiratory failure with hypoxia: Status: Acute (3) UTI (urinary tract infection): Status: Acute (4) CHF exacerbation: Status: Acute (5) ELICIA (acute kidney injury): Status: Acute (6) Severe sepsis: Status: Acute Assessment and Plan: hospital d#4 70-year-old female with COPD and CHF, O2-dependent on 4-5 L at baseline, found to be obtunded at her assisted living facility after having her O2 off # acute/chronic hypoxic resp failure due to COPD - now back on home level of O2 # severe sepsis due to UTI - patient presented with hypotension, tachycardia, tachypnea and hypoxia, noted to have lactic acidosis, positive urinalysis + endorses dysuria/urgency - BCx negative, UCx <10,000 cFU/mL - continue ceftriaxone d#3 - WBC normalized, fluid-resuscitated # acute CHF exacerbation [pending TTE to assess systolic vs diastolic] - was diuresed with IV furosemide, now on maintenance oral furosemide - TTE pending # NSTEMI - likely type 2 due to hypoxia + sepsis - medically managed with 48h of IV heparinization- d/c today - continue ASA, statin, metoprolol - TTE pending, to determine stress test vs. cardiac cath # ELICIA - ?due to sepsis vs CHF- improved after treating sepsis and holding lisinopril- to consider resuming lisinopril in a few days # hypoK - repleted # steroid-dependent COPD, not in acute exacerbation - continue prednisone, azithromycin, ICS/LABA, nebs # hypothyroidism - continue LT4 # chronic pain - continue pregabalin, morphine # VTE ppx - LMWH Quality Stroke Does the patient have a stroke diagnosis?: No VTE Prior VTE?: No VTE Risk Level:: Medical - moderate - high VTE Device Contraindication: Treatment Not Indicated VTE Drug Contraindication: N/A - Med Ordered
[2020-10-21 15:56] LABS: Glucose, Whole Blood 192 mg/dL (60-115)
[2020-10-21] MEDS: Enoxaparin Sodium 40 MG/0.4 ML SYRINGE SUBCUT (16:15)
[2020-10-21 19:32] LABS: Cholesterol 160 mg/dL; HDL Cholesterol 71 mg/dL; LDL Cholesterol Calculated 58 mg/dl; Triglycerides 158 mg/dL
[2020-10-21 20:02] LABS: Glucose, Whole Blood 181 mg/dL (60-115)
[2020-10-21] MEDS: Melatonin 3 MG TABLET PO (21:29)
[2020-10-21] MEDS: traZODone HCL 100 MG TABLET PO (21:29)
[2020-10-21] MEDS: cefTRIAXone sodium 1 GM in 0.9 % Sodium Chloride 50 ML IV (21:29)
[2020-10-21] MEDS: Montelukast Sodium 10 MG TABLET PO (21:29)
[2020-10-21] MEDS: Atorvastatin Calcium 80 MG TABLET PO (21:29)
[2020-10-22 03:42] VITALS: BP 150/82; PULSE 58; RESP 20; TEMP 36.9; O2SAT 98
[2020-10-22 05:59] VITALS: BMI 33.3
[2020-10-22 07:28] LABS: B Type Natriuretic Peptide 219 pg/mL (<100)
[2020-10-22] MEDS: Albuterol/Iprat 2.5/0.5MG 3 ML AMPUL.NEB INHALE ×2 (07:37→11:11)
[2020-10-22 07:38] VITALS: PULSE 64; O2SAT 92
[2020-10-22 07:49] VITALS: BP 148/73; PULSE 65; RESP 20; TEMP 35.7; O2SAT 93
[2020-10-22] MEDS: Fluticasone/Vilanterol 100/25 BLST.W.DEV 1 PUFF INHALE (07:49)
[2020-10-22 07:50] LABS: Glucose, Whole Blood 121 mg/dL (60-115)
[2020-10-22 08:08] LABS: Anion Gap 13 (12-20); Blood Urea Nitrogen 17 mg/dL (9-16); Calcium 9.6 mg/dL (8.4-10.2); Carbon Dioxide 34 mmol/L (22-29); Chloride 98 mmol/L (96-108); Creatinine Clr Calc Pharmacy 45.9; Estimated Glomerular Filt Rate 51; Glucose Random 115 mg/dL (60-115); Potassium 4.6 mmol/L (3.3-5.1); Sodium 140 mmol/L (135-145)
[2020-10-22 09:21] VITALS: BP 148/73; PULSE 65; O2SAT 93
[2020-10-22] MEDS: Morphine Sulfate Immed Release 15 MG TABLET 7.5 MG PO (09:31)
[2020-10-22] MEDS: Furosemide 40 MG TABLET PO (09:31)
[2020-10-22] MEDS: Cholecalciferol (Vitamin D3) 25 MCG TABLET 50 MCG PO (09:31)
[2020-10-22] MEDS: Aspirin 81 MG TAB.CHEW PO (09:31)
[2020-10-22 09:32] VITALS: BP 148/73; PULSE 65
[2020-10-22] MEDS: Levothyroxine Sodium 75 MCG TABLET PO (09:32)
[2020-10-22] MEDS: predniSONE 10 MG TABLET PO (09:32)
[2020-10-22] MEDS: FLUoxetine HCl 20 MG CAPSULE PO (09:32)
[2020-10-22] MEDS: 0.9 % Sodium Chloride Flush 3 ML SYRINGE IVFLUSH (09:32)
[2020-10-22] MEDS: Pregabalin 75 MG CAPSULE PO (09:32)
[2020-10-22] MEDS: Metoprolol Tartrate 12.5 MG HALFTAB PO (09:32)
[2020-10-22 11:12] VITALS: PULSE 67; O2SAT 92
--- NOTE | 2020-10-22 11:12 | P.DS_ITS ---
DS: Providers Provider Date of Service: 10/22/20 Date of admission: 10/18/20 23:15 Date of discharge: 10/22/20 Primary care physician: Unknown Physician Consults: 10/18/20 23:21 Consult to Cardiology Routine Consulting Provider: Shawn Yadav Reason for consultation: CHF, NSTEMI Has provider been notified: Yes DS: Diagnosis Discharge Diagnosis (1) NSTEMI (non-ST elevated myocardial infarction): Status: Acute (2) Acute and chronic respiratory failure with hypoxia: Status: Acute (3) UTI (urinary tract infection): Status: Acute (4) ELICIA (acute kidney injury): Status: Acute (5) Severe sepsis: Status: Acute (6) Acute on chronic heart failure with preserved ejection fraction (HFpEF): Status: Acute DS: Summary Hospital Course Hospital Course: from admission H+P by hospitalist Cony Arreola, 10/18/20: 70-year-old female with past medical history of CHF, COPD O2 dependent about 4- 5 L, hypothyroidism, hypertension, anxiety and depression, presents to the hospital after being unresponsive at home with her oxygen nasal cannula note in her nose as well as the oxygen tank off.? It appears add EMS found patient to be hypoxic although unclear how low O2 levels.? Patient was very confused, obtunded, patient was placed on O2 and appear to have recovered on her way to the hospital.? Patient at this time is alert oriented x3, but according to the patient and her son over the phone patient has not developed hearing loss which is new to her and has really significant difficulty with hearing.? Communication is mostly through writing, patient reports that she has developed lower extremity edema for the past 4 days, she also is complaining of shortness of breath, no orthopnea or PND, chest pain, no abdominal pain nausea or vomiting, no diarrhea constipation, no urinary symptoms.? All other review of system negative ?On arrival to the ED patient hemodynamically stable with no significant abnormal vitals except for a blood pressure of 80/58. her baseline oxygen of 5 L. patient received 1.4 L of NS fluid with blood pressure improving. Patient's labs are significant for WBC count of 14, pH of 7.51, BUN of 19, creatinine of 1.85 with no previous for comparison, lactic acid of 3.3, AST of 295, ALT of 340, troponin of 1700 increased to 6000, BNP of 232, UA positive for UTI with leukocyte Estrace and WBC Interstitial marking associated with edema versus small airway process This 70 year-old female with COPD and CH,O2-dependent on 4-5 L at baseline, was found to be obtunded at her assisted living facility after having her O2 off. She was admitted with severe sepsis due to UTI and improved with ceftriaxone and fluid resuscitation. She required brief IV diuresis for acute exacerbation of diatolic heart failure. She developed NSTEMI that was likely type 2, due to hypoxia and sepsis. She was medically treated with heparin, aspirin, statin, and beta-helder. TTE did not demonstrate any regional wall motion abnormalities. She elected not to pursue stress testing and does not want any further cardic workup. She had ELICIA due to sepsis and lisinopril was held; BMP should be repeated in 1 week and consideration can be given to resuming lisinopril if needed. She was discharged back to her [facility] with 3 more days of oral cefuroxime. Time Spent with Patient Time attestation: Total time spent providing and/or coordinating discharge services: Discharge coordination time: Greater than 30 minutes Quality: Stroke Does the patient have a stroke diagnosis?: No Physical Exam Vital Signs: Vital Signs: Last Vital Signs Temp 96.3 F L 10/22/20 07:49 Pulse 65 10/22/20 09:32 Resp 20 10/22/20 07:49 BP 148/73 H 10/22/20 09:32 Pulse Ox 93 10/22/20 09:21 Oxygen Flow Rate 5 10/18/20 19:35 Body Mass Index 33.3 Gen: in no acute distress HEENT: sclera anicteric, moist mucus membranes Neck: supple Lungs: diminished bilaterally Heart: regular rate and rhythm, no murmurs Abd: soft, non-tender, non-distended Ext: no edema Skin: warm/well-perfused Neuro: alert and oriented x3, no focal findings Psych: appropriate affect ? DS: Data Data Completed and Pending Completed studies during hospitalization [Text1]: Laboratory Results WBC 9.1 X10*3/uL (4.8-10.8) 10/19/20 06:44 RBC 3.51 X10*6/uL (4.20-5.50) L 10/19/20 06:44 Hgb 10.6 g/dl (12.0-16.0) L 10/19/20 06:44 Hct 32.2 % (37-47) L 10/19/20 06:44 MCV 91.7 fL (80-98) 10/19/20 06:44 MCH 30.2 pg (27.0-33.0) 10/19/20 06:44 MCHC 32.9 g/dl (31.0-35.0) 10/19/20 06:44 RDW 16.5 % (11.0-16.0) H 10/19/20 06:44 Plt Count 188 X10*3/uL (160-400) 10/19/20 06:44 MPV 9.6 fL (9.4-12.3) 10/19/20 06:44 Immature Gran % (Auto) 1.8 % (0.0-0.4) H 10/18/20 19:37 Neut % (Auto) 86.5 % (45-73) H 10/18/20 19:37 Lymph % (Auto) 6.4 % (20-40) L 10/18/20 19:37 Morgan % (Auto) 5.1 % (2-11) 10/18/20 19:37 Eos % (Auto) 0.1 % (0-4) 10/18/20 19:37 Baso % (Auto) 0.1 % (0-2) 10/18/20 19:37 Lymph # (Auto) 0.9 X10*3/uL (1.2-4.9) L 10/18/20 19:37 Morgan # (Auto) 0.7 X10*3/uL (0.1-1.2) 10/18/20 19:37 Eos # (Auto) 0.0 X10*3/uL (0.0-0.4) 10/18/20 19:37 Baso # (Auto) 0.0 X10*3/uL (0.0-0.2) 10/18/20 19:37 Abs Immat Gran (auto) 0.25 X10*3/uL (0.00-0.03) H 10/18/20 19:37 Absolute Neuts (auto) 12.1 X10*3/uL (2.0-8.3) H 10/18/20 19:37 Absolute Nucleated RBC 0.000 X10*3/uL (0.0-0.012) 10/19/20 06:44 Nucleated RBC % (auto) 0.0 /100WBC (0.0-0.2) 10/19/20 06:44 PT 12.9 SEC (9.9-13.0) 10/19/20 06:44 INR 1.1 (0.9-1.1) 10/19/20 06:44 APTT 31.2 SEC (24.1-38.0) 10/18/20 22:01 PTT (Heparin Protocol) 63.7 SEC (53-77.9) 10/21/20 06:27 O2 Saturation 92.0 % 10/18/20 21:10 ABG pH at Pt Temp 7.51 (7.35-7.45) H 10/18/20 21:10 ABG pH (Temp Correct) 7.50 (7.35-7.45) H 10/18/20 21:10 ABG pCO2 at Pt Temp 37 mmHg (32-45) 10/18/20 21:10 ABG pCO2 (Temp Corrct 38 mmHg (32-45) 10/18/20 21:10 ABG pO2 at Pt Temp 74 mmHg (83-108) L 10/18/20 21:10 ABG pO2 (Temp Correct 74 (83-108) L 10/18/20 21:10 ABG HCO3 30 mmol/L (22-26) H 10/18/20 21:10 ABG Base Excess (Actual) 7.0 mmol/L 10/18/20 21:10 Sodium 140 mmol/L (135-145) 10/22/20 06:21 Potassium 4.6 mmol/L (3.3-5.1) 10/22/20 06:21 Chloride 98 mmol/L (96-108) 10/22/20 06:21 Carbon Dioxide 34 mmol/L (22-29) H 10/22/20 06:21 Anion Gap 13 (12-20) 10/22/20 06:21 BUN 17 mg/dL (9-16) H D 10/22/20 06:21 Creatinine 1.06 mg/dL (0.5-1.4) 10/22/20 06:21 Estim Creat Clear Calc 45.9 10/22/20 06:21 Estimated GFR 51 10/22/20 06:21 POC Glucose 121 mg/dL (60-115) H 10/22/20 07:47 Random Glucose 115 mg/dL (60-115) 10/22/20 06:21 Lactic Acid 1.5 mmol/L (0.5-2.0) 10/19/20 07:40 Lactic Acid Fup @ 2Hr 2.2 mmol/L (0.5-2.0) H* 10/18/20 22:41 Lactic Acid Fup @ 4Hr 2.3 mmol/L (0.5-2.0) H* 10/19/20 00:59 Calcium 9.6 mg/dL (8.4-10.2) 10/22/20 06:21 Total Bilirubin 0.9 mg/dL (0.0-1.0) 10/18/20 19:37 Direct Bilirubin 0.4 mg/dL (0.0-0.5) 10/18/20 19:37 AST 295 U/L (5-31) H 10/18/20 19:37 ALT 340 U/L (0-31) H 10/18/20 19:37 Alkaline Phosphatase 41 U/L (39-117) 10/18/20 19:37 Troponin I High Sens 7061.4 ng/L (<3.5-17.0) H* 10/19/20 07:40 B-Natriuretic Peptide 219 pg/mL (<100) H 10/22/20 06:21 Total Protein 5.9 g/dL (6.5-8.0) L 10/18/20 19:37 Albumin 3.7 g/dL (3.5-5.0) 10/18/20 19:37 Triglycerides 158 mg/dL 10/21/20 18:39 Cholesterol 160 mg/dL 10/21/20 18:39 LDL Cholesterol, Calc 58 mg/dl 10/21/20 18:39 HDL Cholesterol 71 mg/dL 10/21/20 18:39 Urine Color YELLOW 10/19/20 00:38 Urine Appearance HAZY 10/19/20 00:38 Urine pH 5.5 (5.0-8.0) 10/19/20 00:38 Ur Specific [place] 1.025 (1.005-1.025) 10/19/20 00:38 Urine Protein 2+ MG/DL (NEG-TRACE) H 10/19/20 00:38 Urine Glucose (UA) NEG MG/DL (NEG) 10/19/20 00:38 Urine Ketones 5 MG/DL (NEG) 10/19/20 00:38 Urine Blood TRACE (NEG) 10/19/20 00:38 Urine Nitrite NEG (NEG) 10/19/20 00:38 Ur Leukocyte Esterase 2+ (NEG) H 10/19/20 00:38 Urine RBC 1-4 /HPF (0) 10/19/20 00:38 Urine WBC 15-29 /HPF (0-4) H 10/19/20 00:38 Ur Squamous Epith Cells TRACE /LPF 10/19/20 00:38 Urine Bacteria 1+ /LPF 10/19/20 00:38 Hyaline Casts 0-2 /LPF 10/19/20 00:38 Granular Casts 0-2 /LPF 10/19/20 00:38 COVID-19 ([facility]UTHER) Negative (Negative) 10/18/20 20:20 COVID-19 Clin Com See Note 10/18/20 20:20 Impressions Chest X-Ray 10/18/20 19:31 IMPRESSION: Prominent interstitial markings could be associated with mild edema versus a small airways process. No dense consolidation. Head CT 10/18/20 23:15 IMPRESSION: No acute intracranial pathology. Extensive chronic white matter small vessel ischemic changes. TTE 10/21/20 - Normal left ventricular size and systolic function.? - There is no evidence of regional wall motion abnormalities.? ? - E/E prime ratio is between 8 and 15 consistent with? indeterminate filling pressures. ? - Normal right ventricular cavity size and systolic function.? ? - Mild pulmonary hypertension is present.?? Discharge Plan Discharge Patient Disposition: Xfer Other Discharge Diagnosis: hypoxia, sepsis, UTI, NSTEMI Referrals: Quinn Hung DO [Physician] - 1 Week Physician,Unknown [Primary Care Provider] - 1 Week Discharge Medications: New cefuroxime axetil 250 mg tablet 250 mg PO BID Qty: 6 RF: 0 metoprolol tartrate 25 mg tablet 12.5 mg PO BID Qty: 30 RF: 0 Continued furosemide 40 mg tablet 1 tab PO DAILY RF: 0 prednisone 10 mg tablet 1 tab PO DAILY RF: 0 azithromycin 250 mg tablet 1 tab PO MOWEFR@0900 RF: 0 melatonin 3 mg tablet 1 tab PO BEDTIME RF: 0 levothyroxine 75 mcg tablet 1 tab PO DAILY RF: 0 lorazepam 0.5 mg tablet 1 tab PO TID PRN (Reason: Anxiety) RF: 0 trazodone 100 mg tablet 1 tab PO BEDTIME RF: 0 aspirin 81 mg tablet,chewable 1 tab PO DAILY RF: 0 montelukast 10 mg tablet 1 tab PO BEDTIME RF: 0 fluoxetine 20 mg capsule 1 cap PO DAILY RF: 0 loratadine 10 mg tablet 1 tab PO DAILY RF: 0 rosuvastatin 20 mg tablet 1 tab PO BEDTIME RF: 0 pregabalin 75 mg capsule 1 cap PO BID RF: 0 cholecalciferol (vitamin D3) [Vitamin D3] 50 mcg (2,000 unit) capsule 1 cap PO DAILY RF: 0 One Daily Multi-Vit w-Mineral 4.5 mg iron tablet 1 tab PO DAILY RF: 0 albuterol sulfate 2.5 mg /3 mL (0.083 %) solution for nebulization 2.5 mg inhalation Q4H PRN (Reason: Shortness Of Breath Or Wheezing) RF: 0 albuterol sulfate 90 mcg/actuation Hfa Aerosol Inhaler 2 puff INHALATION Q4-6H PRN (Reason: Shortness Of Breath Or Wheezing) RF: 0 Dulera 100-5 mcg/actuation Hfa Aerosol Inhaler 2 puff INHALATION BID RF: 0 meclizine 12.5 mg Tablet 6.25 mg PO BID PRN (Reason: Dizziness) RF: 0 sodium chloride [Deep Sea Nasal] 0.65 % aerosol,spray 1 - 2 spray intranasal Q1H PRN (Reason: Nasal Congestion) RF: 0 Incruse Ellipta 62.5 mcg/actuation Blister With Device 1 inh INHALATION DAILY RF: 0 acetaminophen 325 mg tablet 650 mg PO Q4H PRN (Reason: PAIN/FEVER) RF: 0 dextromethorphan-guaifenesin 10-100 mg/5 mL Syrup 10 ml PO Q4H PRN (Reason: Cough) RF: 0 magnesium hydroxide [Milk of Magnesia] 400 mg/5 mL Suspension 30 ml PO DAILY PRN (Reason: Constipation) RF: 0 triamcinolone acetonide 0.025 % cream 1 applic topical BID PRN (Reason: Rash) RF: 0 nystatin 100,000 unit/gram Cream 1 appl TOPICAL BID PRN (Reason: Rash) RF: 0 morphine 15 mg tablet 0.5 tab PO BID RF: 0 guaifenesin [Mucus Relief] 400 mg Tablet 400 mg PO Q12H PRN (Reason: Congestion) RF: 0 Senna Plus 8.6-50 mg Capsule 1 tab-cap PO BID PRN (Reason: Constipation) RF: 0 furosemide 20 mg Tablet 20 mg PO DAILY PRN (Reason: Edema) RF: 0 Discontinued lisinopril 2.5 mg tablet 1 tab PO DAILY RF: 0 Discharge Orders: Discharge Order (Routine); Ordered 10/22/20 Ordered By: Jenna Gibbons Diet: advance to usual diet Activity on Discharge: As tolerated Stand Alone Forms: Patient Portal Discharge page Other Ambulatory Orders: Basic Metabolic Panel (Routine) Timeframe: 1 Week Facility: [facility] - Location: Laboratory Ordered By: Jenna Gibbons Care Plan Goals: resolution of urinary tract infection cardiopulmonary and renal health Health Concerns: UTI/sepsis/hypoxia acute renal injury NSTEMI Plan of Treatment: take cefuroxime 250 mg 2x a day for 3 more days keep oxygen on, 5L via nasal cannula, as before hold lisinopril for now; repeat BMP in 1 week; see your primary care doctor in 1 week continue aspirin and rosuvastatin; take metoprolol tartrate 12.5mg twice daily if you decide to pursue cardiac workup, please schedule an appointment with the shock absorber installer: [address] [place] [address], [address] [place] [address] Assessment: as above
[2020-10-22 11:41] LABS: Glucose, Whole Blood 211 mg/dL (60-115)
--- NOTE | 2020-10-22 11:56 | MHC.CM.PN ---
Patient has been medically cleared to return home to [facility] today at 1PM, via [facility]. IMM addressed with Patient at bedside, providing her with the original and placing a copy on the chart. Patient is aware of and in agreement with the dc plan.
--- NOTE | 2020-10-22 12:10 | MHC.CM.PN ---
dc summary has been faxed to [facility] [employer] [facility] [facility] and uploaded into [employer].
== END 2020-10-22 13:38 | disposition other institution (70) | DRG 871 ==
LOC: HO.ED 22:33 → HO.EDOVER 23:56 → HO.IMC 10-19 19:35
PROVIDERS: Hospitalist; Admitting Provider Internal Medicine; Emergency Provider Emergency Medicine Emergency Medical Services; Visit Provider Family Medicine
DX: A41.9 Sepsis, unspecified organism (principal); J96.21 Acute and chronic respiratory failure with hypoxia; I21.A1 Myocardial infarction type 2; I50.33 Acute on chronic diastolic (congestive) heart failure; N17.9 Acute kidney failure, unspecified; N39.0 Urinary tract infection, site not specified; R65.20 Severe sepsis without septic shock; E03.9 Hypothyroidism, unspecified; E78.5 Hyperlipidemia, unspecified; I11.0 Hypertensive heart disease with heart failure; Z20.822 Contact with and (suspected) exposure to COVID-19; E87.6 Hypokalemia; Z99.81 Dependence on supplemental oxygen; Z87.891 Personal history of nicotine dependence; Z79.52 Long term (current) use of systemic steroids; Z79.82 Long term (current) use of aspirin; Z79.890 Hormone replacement therapy; Z79.899 Other long term (current) drug therapy
CPT/HCPCS: 36415; 70450; 71045; 80048; 80061; 80076; 81001; 82803; 82947; 83605; 83880; 84484; 85025; 85027; 85610; 85730; 87040; 87086; 87635; 93005; 93306; 94640; 96365; 96366; 96375; 96376; 97162; 99285; 99291; J0456; J0696; J1650; J1940